=== PATIENT | male | born 1955 | race Caucasian/White ===

== ENCOUNTER 2021-04-29 08:43 | Emergency (ER) | payer MEDICARE, OTHER, SELFPAY ==
[2021-04-29 08:45] VITALS: BP 128/70; PULSE 92; RESP 14; TEMP 37.6; O2SAT 96; BMI 34.7
--- NOTE | 2021-04-29 09:12 | EDS_ITS ---
HPI History of Present Illness Chief Complaint: Chest Pain Informant: patient and EMS Narrative Narrative: 66-year-old male presents to the emergency department with COVID-19. Patient states that last Monday he had a slight sore throat. By he felt significant fatigue and had a slight cough. He notes 2 episodes of diarrhea. He has been taking Tylenol and Motrin. He notes pain in his head that comes on as a sharp stabbing sensation. It is better with Tylenol Motrin but then returns. He notes sweats. He notes an upset stomach that is worse when he eats and drinks. Patient states that pain makes him very nauseous. He does have a history of GERD as well as hypertension. He denies any shortness of breath. [facility] Medical History (Updated 04/29/21 @ 09:[address] Evaristo Correa DO) GERD (gastroesophageal reflux disease) HTN (hypertension) Inguinal hernia Home Medications antiarthritic combination no.2 900 mg tablet mg PO 07/13/20 [History Last Taken Unknown] lisinopril 20 mg tablet 20 mg PO DAILY 07/13/20 [History Last Taken Unknown] omeprazole 40 mg capsule,delayed release 40 mg PO BID 07/13/20 [History Last Taken Unknown] dexamethasone 6 mg PO DAILY #5 tab 04/29/21 [Rx Last Taken Unknown] hydrocodone-acetaminophen 1 tab PO Q6H PRN PRN 3 Days #12 tablet 04/29/21 [Rx Last Taken Unknown] Allergy/AdvReac Type Severity Reaction Status Date / Time No Known Allergies Allergy Unverified 04/29/21 08:45 Family History Mother Cancer ovarian Surgical History S/P right inguinal hernia repair Social History Smoking Status: Never smoker alcohol intake: current alcohol intake frequency: holidays/special occasions only ROS ROS ED ROS Narrative General fatigue Constitutional Constitutional ED: Reports fever(s) and sweats; Denies chills or weight loss Eyes Eyes: Denies change in vision or diplopia ENT ENT ED: Denies ear pain, rhinorrhea or sore throat Cardiovascular Cardiovascular: Denies chest pain, orthopnea, palpitations or racing heartbeat Respiratory/Chest Respiratory/Chest: Reports cough; Denies dyspnea or orthopnea Gastrointestinal Gastrointestinal: Reports abdominal pain, diarrhea and nausea; Denies vomiting Genitourinary Genitourinary ED: Denies dysuria, hematuria or urinary frequency Musculoskeletal Musculoskeletal: Reports myalgias; Denies arthralgias Integumentary Denies abscess or rash Neurologic Neurologic: Reports headache(s); Denies weakness Psychiatric Psychiatric: Denies anxiety, depression, suicidal ideation or suicidal thoughts Endocrine Endocrinology: Denies polydipsia, polyphagia or polyuria Allergic/Immunologic Allergic/Immunologic ED: Denies mouth swelling, tongue swelling or urticaria EXAM Physical Exam Const Vital Signs: 04/29/21 08:45 04/29/21 11:20 Temperature 99.6 F H Temperature Source Oral Pulse Rate 92 80 Respiratory Rate 14 20 H Respiratory Effort Normal Non-Labored Respiratory Pattern Normal Blood Pressure 128/70 H 131/78 H Blood Pressure Mean 89 95 Pulse Ox 96 92 Oxygen Delivery Method Room Air Positive well nourished, well developed and obese General Appearance ED: well developed Nutritional Appearance: obese HEENT Reports normocephalic, head/scalp atraumatic and moist mucous membranes Eyes PERRL and EOMs intact bilaterally Neck no lymphadenopathy, supple and no JVD Resp normal respiratory effort and clear to auscultation bilaterally Cardio regular rate, regular rhythm and no murmurs GI non-distended GI Narrative: Diffuse tenderness to palpation Auscultation: normoactive bowel sounds Palpation: soft Back/Spine no CVA tenderness and normal ROM Extremity normal to inspection General Extremety ED: Negative for edema General Extremity: Negative for edema Neuro oriented x3 and CN's II-XII intact bilaterally Sensorium / Orientation: alert Motor Exam: strength 5/5 throughout Psych mental status grossly normal Mood & Affect: Negative for depressed or tearful Skin no rashes or lesions noted and no wounds MDM MDM MDM Narrative Medical decision making narrative: Patient has a thrombocytopenia and a leukopenia. BUN of 31 with creatinine 1.66. Urinalysis negative. My interpretation of chest x-ray is multifocal infiltrates. CTA of the chest demonstrates no pulmonary embolism. Patient received Pepcid and a small amount of fluid I also gave Toradol and morphine. The patient most likely has a gastritis secondary to his Motrin use which according to his paperwork he has been taking a significant amount of in addition with Excedrin. Recommend he take Tylenol. Continue to take his omeprazole and I will write for him to have Decadron on I can write for some pain medicine for his sharp lancinating head pain. Lab Data Attestation: I reviewed the patient's lab results. Labs: Laboratory Results - last 24 hr 04/29/21 04/29/21 04/29/21 08:48 08:48 09:35 WBC 3.7 L RBC 5.43 Hgb 16.6 H Hct 49.1 MCV 90.4 MCH 30.6 MCHC 33.8 RDW Std Deviation 43.7 RDW Coeff of Marina 13.2 Plt Count 95 L MPV 11.5 Immature Gran % (Auto) 0.300 Neut % (Auto) 66.0 Lymph % (Auto) 25.3 Latimer % (Auto) 8.1 Eos % (Auto) 0.0 Baso % (Auto) 0.3 Absolute Neuts (auto) 2.5 Absolute Lymphs (auto) 0.94 Nucleated RBC % 0 Platelet Estimate MOD DEC Sodium 139 Potassium 4.0 Chloride 105 Carbon Dioxide 27.0 Anion Gap 7 BUN 31 H Creatinine 1.66 H Estim Creat Clear Calc 46.62 Est GFR (MDRD) Af Amer 54 L Est GFR (MDRD) Non-Af 44 L BUN/Creatinine Ratio 18.7 Glucose 120 H Calcium 8.6 Total Bilirubin 0.50 AST 95 H ALT 103 H Alkaline Phosphatase 69 Troponin I High Sens 15 Total Protein 7.6 Albumin 3.4 Globulin 4.2 Albumin/Globulin Ratio 0.8 L Lipase 81 Urine Color Yellow Urine Clarity Clear Urine pH 5.0 Ur Specific Mallie 1.020 Urine Protein 30 H Urine Glucose (UA) Normal Urine Ketones Negative Urine Occult Blood 10 H Urine Nitrite Negative Urine Bilirubin Negative Urine Urobilinogen Normal Ur Leukocyte Esterase Negative Urine RBC 0 SEEN Urine WBC 0-5 SEEN Ur Squamous Epith Cells 0 SEEN Urine Bacteria 0 SEEN WBC Casts 0-5 SEEN Urine Mucus 0 SEEN Radiography Diagnostic Testing: Clinical Impression(s) from Imaging Studies Chest X-Ray 04/29/21 09:15 IMPRESSION: Multifocal infiltrates with features commonly reported with COVID pneumonia. Electronically Signed: Rob Valles MD ([place]) at 10:09 EDT , Service support , Chest CTA 04/29/21 10:12 IMPRESSION: 1. No central or segmental pulmonary embolism. 2. Multifocal infiltrates with features commonly reported with COVID pneumonia. Electronically Signed: Rob Valles MD (Brooks) at 10:33 EDT , Service support , EKG Initial EKG: Attestation: I personally reviewed and interpreted this EKG as follows: Comments: Normal sinus rhythm with a ventricular rate of 89 bpm. Prior EKG tracings: available for review Prior: Unchanged Discharge Plan Triage Chief Complaint: Chest Pain ED Provider: Evaristo Correa Dx/Rx/DC Orders Clinical Impression: COVID-19, Gastritis Instructions: Coronavirus Disease 2019 (COVID-19): Caring for Yourself or Others, ED Gastritis (Adult) Prescriptions: New hydrocodone-acetaminophen [hydrocodone-acetaminophen] 1 TABLET tablet 1 tab PO Q6H PRN PRN (Reason: Pain) 3 Days Qty: 12 RF: 0 dexamethasone 6 MG tablet 6 mg PO DAILY Qty: 5 RF: 0 No Action lisinopril 20 mg tablet 20 mg PO DAILY RF: 0 omeprazole 40 mg capsule,delayed release(DR/EC) 40 mg PO BID RF: 0 glucosamine-chondroitin 900 mg tablet PO RF: 0 Primary Care Provider: Liu Maciel Referrals: Liu Maciel MD [Primary Care Provider] - As Needed Disposition Disposition: Home, Self Care
--- NOTE | 2021-04-29 09:15 | RAD_ITS ---
STUDY: X-RAY CHEST REASON FOR EXAM: Male, 66 years old. covid 19 TECHNIQUE: AP COMPARISON: None. FINDINGS: EKG leads project over the chest. Patchy reticular and groundglass opacities throughout the lungs. There is no demonstrated pleural abnormality. Normal size heart. Normal mediastinum and martha. Normal visualized pulmonary arteries. Normal visualized aortic arch and descending thoracic aorta. Normal visualized thoracic spine. Normal visualized ribs, clavicles, and shoulders. There is no demonstrated abnormality of the visualized soft tissue structures of the upper abdomen. RAD/Chest 1 View (Portable) IMPRESSION: Multifocal infiltrates with features commonly reported with COVID pneumonia. Electronically Signed: Rob Valles MD (Brooks) at 10:09 EDT , Service support ,
--- NOTE | 2021-04-29 09:15 | EKG12_ITS ---
Test Reason : Blood Pressure : / mmHG Vent. Rate : 085 BPM Atrial Rate : 085 BPM P-R Int : 128 ms QRS Dur : 088 ms QT Int : 340 ms P-R-T Axes : 045 016 027 degrees QTc Int : 404 ms Normal sinus rhythm Normal ECG When compared with ECG of 29-APR-2021 09:29, MANUAL COMPARISON REQUIRED, DATA IS UNCONFIRMED Confirmed by CHELY PAGE, REGULO ([id number]), brands editor LILA JOES ([id number]) on 05/03/2021 12:14:34 PM Referred By: MARKELL Confirmed By:NOA MO MD
[2021-04-29 09:28] LABS: Absolute Lymphocyte Count 0.94 X10^3/uL (0.83-4.51); Absolute Neutrophil Count 2.5 X10^3/uL (2.0-7.7); Basophil# 0.01 X10^3/uL; Basophil% 0.3 % (0-1); Hematocrit 49.1 % (40-54); Hemoglobin 16.6 g/dL (13.0-16.5); Lymphocyte # 0.94 X10^3/ul (0.83-4.51); Lymphocyte % 25.3 % (19-41); Mean Corp Hgb Conc 33.8 g/dL (32-36); Mean Corpuscular Hgb 30.6 pg (27.0-32.0); Mean Corpuscular Volume 90.4 fL (80-94); Mean Platelet Vol. 11.5 fl (6.2-12.0); Monocyte% 8.1 % (0-10); NRBC Flagged by Analyzer 0 % (0-5); Neutrophil # 2.46 X10^3/uL (2.7-7.7); POSITIVE COUNT YES; Platelet Count 95 K/mm3 (150-450); RBC Distribution Width CV 13.2 % (11.6-14.6); RBC Distribution Width SD 43.7 fl (35.1-43.9); Red Blood Count 5.43 M/mm3 (4.6-6.2); White Blood Count 3.7 K/mm3 (4.4-11.0)
[2021-04-29 09:29] LABS: Differential Indicated SCAN CRITERIA MET
[2021-04-29] MEDS: Ketorolac 30 MG/ML Syringe IV (09:35)
[2021-04-29] MEDS: Ondansetron 4 MG/2 ML Vial IV (09:35)
[2021-04-29] MEDS: Morphine 4 MG/ML Syringe IV (09:36)
[2021-04-29] MEDS: Famotidine 200 MG/20 ML MDV 20 MG in 0.9% Normal Saline (Pres. free 8 ML 300 MG IV (09:46)
[2021-04-29 09:47] LABS: Bacteria 0 SEEN /hpf (None Seen); Mucous, Urine 0 SEEN /hpf (<or=2+); Red Blood Cells-Urine 0 SEEN /hpf (0-5); Squamous Epithelial Cells - UA 0 SEEN /hpf (0-5)
[2021-04-29 09:53] LABS: ALB/GLOB Ratio 0.8 RATIO (0.9-2.4); AST(SGOT) 95 U/L (15-37); Alanine Aminotransfer ALT/SGPT 103 U/L (16-61); Albumin, Serum 3.4 g/dL (3.2-5.0); Alkaline Phosphatase 69 U/L (45-117); Anion Gap 7 (5-15); BUN 31 mg/dL (7-18); BUN/Creat Ratio 18.7 RATIO (10-20); Calcium,Total 8.6 mg/dL (8.5-10.1); Chloride 105 mmol/L (98-107); Creatinine, Serum 1.66 mg/dL (0.70-1.30); EST Glomerular Filtration Rate 44 mL/min (>60); Est Glom Filt Rate - Afr Amer 54 mL/min (>60); Estimated Creatinine Clearance 46.62 ml/min; Globulin 4.2 g/dL (2.2-4.2); Glucose 120 mg/dL (74-106); Lipase 81 U/L (73-393); Protein, Total 7.6 g/dL (6.4-8.2); Sodium Level 139 mmol/L (136-145); Troponin-I HS 15 pg/mL (3.0-78.0)
[2021-04-29 09:54] LABS: Color, Urine Yellow (Yellow); Glucose, Dipstick Normal (Normal); Ketone-Dipstick Negative (Negative); Leukocyte Esterase-Dipstick Negative /ul (Negative); Nitrite-Dipstick Negative (Negative); Occult Blood-Urine 10 /ul (Negative); Protein-Dipstick 30 mg/dl (Negative); Urine Bilirubin Dipstick Negative (Negative); Urine Clarity Clear (Clear); Urine Urobilinogen Normal (Normal)
[2021-04-29 10:00] LABS: White Blood Cells 0-5 SEEN /hpf (0-5); White Cell Cast 0-5 SEEN /lpf (None Seen)
[2021-04-29 10:01] LABS: Platelet Estimate MOD DEC (ADEQ)
--- NOTE | 2021-04-29 10:12 | CT_ITS ---
STUDY: CTA CHEST REASON FOR EXAM: Male, 66 years old. covid 19 pulmonary embolism RADIATION DOSAGE (If Supplied By Facility): CTDIvol = ( 16.21 ) mGy, DLP = ( 540.30 ) mGycm TECHNIQUE: The examination was performed with the intravenous administration of IV 100mL Isovue-370. Post-processing of the angiographic images was performed, with multiplanar reformation and 3D reconstruction. Individualized dose optimization techniques were used for this CT. COMPARISON: None. FINDINGS: Normal enhancement of the main pulmonary artery and right and left pulmonary arteries. Normal enhancement of the bilateral peripheral pulmonary arteries. There is no demonstrated pulmonary embolism. Normal thoracic aorta and visualized great vessels. There is no demonstrated aortic dissection. Normal heart and pericardium. There are calcifications of the coronary arteries. Normal mediastinum. Normal hilar regions. Normal visualized trachea and bronchi. The lungs are well expanded. Patchy groundglass and interstitial opacities and multiple pulmonary lobes. Normal pleura. Normal chest wall structures. There are degenerative changes of thoracic spine. There is diffuse fatty infiltration of the liver. CT/CTA Chest W/WO Contrast IMPRESSION: 1. No central or segmental pulmonary embolism. 2. Multifocal infiltrates with features commonly reported with COVID pneumonia. Electronically Signed: Rob Valles MD ([place]) at 10:33 EDT , Service support ,
[2021-04-29 10:59] VITALS: O2SAT 96
[2021-04-29 11:20] VITALS: BP 131/78; PULSE 80; RESP 20; O2SAT 92
[2021-04-29 12:23] VITALS: BP 119/74; PULSE 80; RESP 20; O2SAT 96
== END 2021-04-29 12:42 | disposition home or self-care (01) ==
PROVIDERS: Emergency Provider Emergency Medicine; PCP Family Medicine
DX: U07.1 COVID-19 (principal); K29.70 Gastritis, unspecified, without bleeding; E66.9 Obesity, unspecified; K21.9 Gastro-esophageal reflux disease without esophagitis; I10 Essential (primary) hypertension; Z79.899 Other long term (current) drug therapy
CPT/HCPCS: 71045; 71275; 80053; 81001; 83690; 84484; 85025; 93005; 96365; 96366; 96375; 99285; Q9967; A4216; J2405; J3490

== ENCOUNTER 2021-05-02 10:07 | Inpatient (IN) | payer MEDICARE, OTHER, SELFPAY ==
[2021-05-02] VITALS (9 sets, daily range): BP systolic 104–157; BP diastolic 56–96; PULSE 71–112; RESP 18–31; TEMP 36.3–37.7; O2SAT 85–96; BMI 38.6
--- NOTE | 2021-05-02 10:25 | EKG12_ITS ---
Test Reason : CP Blood Pressure : / mmHG Vent. Rate : 089 BPM Atrial Rate : 089 BPM P-R Int : 128 ms QRS Dur : 090 ms QT Int : 328 ms P-R-T Axes : 047 027 030 degrees QTc Int : 399 ms Normal sinus rhythm Normal ECG Confirmed by CHELY PAGE, REGULO ([id number]), editor continuity and script LILA JOSE ([id number]) on 05/03/2021 12:14:20 PM Referred By: Confirmed By:NOA MO MD
--- NOTE | 2021-05-02 10:25 | RAD_ITS ---
STUDY: X-RAY CHEST REASON FOR EXAM: Male, 66 years old. cough TECHNIQUE: Single AP portable view of the chest. COMPARISON: CTA chest 04/29/2021, x-ray chest 04/29/2021 FINDINGS: Cardiac monitoring leads are present. Once again there are patchy alveolar opacities seen throughout both lungs consistent with infiltrate, viral pneumonitis such as Covid 19. Since prior study there there is greater consolidation in the inferior aspect of the right upper lobe and greater consolidation in the left lower lobe laterally as well as the perihilar region with overall lower lung volumes. There is no demonstrated pleural abnormality. Normal size heart. Normal mediastinum and martha. Normal visualized pulmonary arteries. Normal visualized aortic arch and descending thoracic aorta. Normal visualized thoracic spine. Normal visualized ribs, clavicles, and shoulders. There is no demonstrated abnormality of the visualized soft tissue structures of the upper abdomen. RAD/Chest 1 View (Portable) IMPRESSION: Once again there are patchy alveolar opacities seen throughout both lungs consistent with infiltrate, viral pneumonitis such as Covid 19. Since prior study there there is greater consolidation in the inferior aspect of the right upper lobe and greater consolidation in the left lower lobe laterally as well as the perihilar region with overall lower lung volumes Electronically Signed: Esther Moreno MD at 11:20 EDT , Service support ,
--- NOTE | 2021-05-02 10:32 | ED.VIS.CHEST ---
HPI History of Present Illness Chief Complaint: Shortness of Breath Narrative Narrative: 56-year-old male presenting with dyspnea and found to have a pulse ox of 85% on room air. His O2 sats improved with 4.5 L of oxygen. Patient is stating that he has some epigastric pain. He feels like he has to belch. Mild nausea is associated. Patient symptoms of COVID-19 started 12 days ago. He was seen on the and was able to be discharged home. He states that he is not been taking his medication as he supposed to but is not eating and drinking as much as he has been. He does not require oxygen usually at home. He denies any cardiac history. Patient states he had a chest CT the other day which was abnormal but cannot tell me what was on it. Patient no longer having fevers but does complain of body aches and chills. PFSH PFSH Medical History GERD (gastroesophageal reflux disease) HTN (hypertension) Inguinal hernia Home Medications antiarthritic combination no.2 900 mg tablet 900 mg PO DAILY 07/13/20 [History Last Taken Unknown] lisinopril 20 mg tablet 20 mg PO DAILY 07/13/20 [History Last Taken Unknown] omeprazole 40 mg capsule,delayed release 40 mg PO BID 07/13/20 [History Last Taken Unknown] dexamethasone 6 mg PO DAILY #5 tab 04/29/21 [Rx Last Taken Unknown] hydrocodone-acetaminophen 1 tab PO Q6H PRN PRN 3 Days #12 tablet 04/29/21 [Rx Last Taken Unknown] Allergy/AdvReac Type Severity Reaction Status Date / Time No Known Allergies Allergy Unverified 04/29/21 08:45 Family History Mother Cancer ovarian Surgical History S/P right inguinal hernia repair Social History Smoking Status: Never smoker alcohol intake: current alcohol intake frequency: holidays/special occasions only ROS ROS ED Constitutional Constitutional ED: Reports chills and fever(s) Eyes Eyes: Denies blurry vision or change in vision ENT ENT ED: Denies rhinorrhea or sore throat Cardiovascular Cardiovascular: Reports chest pain; Denies palpitations Respiratory/Chest Respiratory/Chest: Reports cough, dyspnea and dyspnea on exertion Gastrointestinal Gastrointestinal: Reports abdominal pain and nausea; Denies constipation, diarrhea or vomiting Genitourinary Genitourinary ED: Denies dysuria or hematuria Musculoskeletal Musculoskeletal: Reports myalgias; Denies arthralgias or neck pain Integumentary Denies Abrasions or rash Neurologic Neurologic: Reports headache(s); Denies paresthesias or weakness EXAM Physical Exam Const Vital Signs: 05/02/21 10:09 05/02/21 10:53 05/02/21 11:13 Temperature 98.4 F 97.3 F L Temperature Source Oral Temporal Pulse Rate 112 H 84 84 Respiratory Rate 20 H 27 H 27 H Respiratory Effort Short of Breath Labored Accessory Muscle Use Respiratory Depth Shallow Respiratory Pattern Tachypnea Blood Pressure 157/96 H 112/73 121/77 H Blood Pressure Mean 116 86 91 Pulse Ox 85 96 94 Oxygen Delivery Method Nasal Cannula Nasal Cannula Oxygen Flow Rate (L/min) 6 5 6 Fraction of Inspired Oxygen (FIO2) 94 Positive obese General Appearance ED: NAD; Negative for pallor Nutritional Appearance: obese HEENT Reports dry mucous membranes normocephalic and atraumatic Mouth ED: Yes dry mucous membranes Mouth: dry mucous membranes Eyes PERRL and EOMs intact bilaterally General Eye ED: Negative for pale conjunctiva or scleral icterus Neck No no lymphadenopathy and No supple Chest Wall inspection of chest normal and palpation of chest normal Resp normal respiratory effort and clear to auscultation bilaterally Cardio regular rhythm Rate: tachycardic GI GI Narrative: Mild epigastric tenderness. Extremity normal to inspection General Extremety ED: Negative for edema or tenderness General Extremity: Negative for edema Neuro CN's II-XII intact bilaterally and no sensory deficits noted Sensorium / Orientation: awake and alert Motor Exam: strength 5/5 throughout Psych mental status grossly normal Skin General Skin Exam: Negative for jaundice or pallor MDM MDM MDM Narrative Medical decision making narrative: Patient with COVID-19 on day 12 presenting with failure to thrive and hypoxia. CBC does show that he is lymphopenic. He does not have an elevated white blood cell count nor is he leukopenic. Creatinine is actually improved to 1.27. Electrolytes are normal. AST and ALT are slightly elevated. Bilirubin normal. Procalcitonin negative. Troponin negative. EKG on my interpretation shows a normal sinus rhythm with a ventricular rate of 85 bpm without sign of ischemic change. Chest x-ray my participation shows bilateral pulmonary infiltrates which have worsened since previous chest x-ray. Radiologist does agree. I do not believe this is likely due to Covid. Patient recently had CTA of the chest which was negative for PEs. Patient was given dexamethasone 6 mg IV as well as omeprazole. At this point since the patient is unable to care for himself at home and is requiring oxygen above the level I could send him home with I will admit him to the hospital. He was discussed with the hospitalist and is admitted in stabilized condition. Impression: 1. COVID-19 pneumonitis 2. Hypoxic respiratory failure Lab Data Attestation: I reviewed the patient's lab results. Labs: Laboratory Results - last 24 hr 05/02/21 05/02/21 05/02/21 09:32 09:32 09:32 WBC 8.3 RBC 5.44 Hgb 16.4 Hct 49.1 MCV 90.3 MCH 30.1 MCHC 33.4 RDW Std Deviation 42.6 RDW Coeff of Marina 12.9 Plt Count 174 MPV 10.5 Immature Gran % (Auto) 0.700 Neut % (Auto) 81.6 H Lymph % (Auto) 8.2 L Gosper % (Auto) 9.4 Eos % (Auto) 0.0 Baso % (Auto) 0.1 Absolute Neuts (auto) 6.8 Absolute Lymphs (auto) 0.68 L Nucleated RBC % 0 Sodium 139 Potassium 4.1 Chloride 102 Carbon Dioxide 28.0 Anion Gap 9 BUN 36 H Creatinine 1.27 Estim Creat Clear Calc 53.49 Est GFR (MDRD) Af Amer 73 Est GFR (MDRD) Non-Af 60 BUN/Creatinine Ratio 28.3 H Glucose 117 H Calcium 9.0 Total Bilirubin 0.60 AST 95 H ALT 139 H Alkaline Phosphatase 80 Troponin I High Sens 9 Total Protein 7.7 Albumin 3.3 Globulin 4.4 H Albumin/Globulin Ratio 0.8 L Lipase Procalcitonin 0.06 05/02/21 09:32 WBC RBC Hgb Hct MCV MCH MCHC RDW Std Deviation RDW Coeff of Marina Plt Count MPV Immature Gran % (Auto) Neut % (Auto) Lymph % (Auto) Gos[place] % (Auto) Eos % (Auto) Baso % (Auto) Absolute Neuts (auto) Absolute Lymphs (auto) Nucleated RBC % Sodium Potassium Chloride Carbon Dioxide Anion Gap BUN Creatinine Estim Creat Clear Calc Est GFR (MDRD) Af Amer Est GFR (MDRD) Non-Af BUN/Creatinine Ratio Glucose Calcium Total Bilirubin AST ALT Alkaline Phosphatase Troponin I High Sens Total Protein Albumin Globulin Albumin/Globulin Ratio Lipase 54 L Procalcitonin Radiography Diagnostic Testing: Clinical Impression(s) from Imaging Studies Chest X-Ray 05/02/21 10:25 IMPRESSION: Once again there are patchy alveolar opacities seen throughout both lungs consistent with infiltrate, viral pneumonitis such as Covid 19. Since prior study there there is greater consolidation in the inferior aspect of the right upper lobe and greater consolidation in the left lower lobe laterally as well as the perihilar region with overall lower lung volumes Electronically Signed: Esther Moreno MD at 11:20 EDT , Service support , Discharge Plan Triage Chief Complaint: Shortness of Breath ED Provider: Ruben Correa Dx/Rx/DC Orders Prescriptions: No Action lisinopril 20 mg tablet 20 mg PO DAILY RF: 0 omeprazole 40 mg capsule,delayed release(DR/EC) 40 mg PO BID RF: 0 glucosamine-chondroitin 900 mg tablet 900 mg PO DAILY RF: 0 hydrocodone-acetaminophen [hydrocodone-acetaminophen] 1 TABLET tablet 1 tab PO Q6H PRN PRN (Reason: Pain) 3 Days Qty: 12 RF: 0 dexamethasone 6 MG tablet 6 mg PO DAILY Qty: 5 RF: 0 Primary Care Provider: Liu Maciel
[2021-05-02 10:35] LABS: Absolute Lymphocyte Count 0.68 X10^3/uL (0.83-4.51); Absolute Neutrophil Count 6.8 X10^3/uL (2.0-7.7); Basophil# 0.01 X10^3/uL; Basophil% 0.1 % (0-1); Hematocrit 49.1 % (40-54); Hemoglobin 16.4 g/dL (13.0-16.5); Lymphocyte # 0.68 X10^3/ul (0.83-4.51); Lymphocyte % 8.2 % (19-41); Mean Corp Hgb Conc 33.4 g/dL (32-36); Mean Corpuscular Hgb 30.1 pg (27.0-32.0); Mean Corpuscular Volume 90.3 fL (80-94); Mean Platelet Vol. 10.5 fl (6.2-12.0); Monocyte# 0.78 X10^3/uL; Monocyte% 9.4 % (0-10); NRBC Flagged by Analyzer 0 % (0-5); Neutrophil # 6.75 X10^3/uL (2.7-7.7); Neutrophil % 81.6 % (47-70); Platelet Count 174 K/mm3 (150-450); RBC Distribution Width CV 12.9 % (11.6-14.6); RBC Distribution Width SD 42.6 fl (35.1-43.9); Red Blood Count 5.44 M/mm3 (4.6-6.2); White Blood Count 8.3 K/mm3 (4.4-11.0)
[2021-05-02 10:54] LABS: Procalcitonin 0.06 ng/mL (0.00-0.09)
[2021-05-02 10:55] LABS: ALB/GLOB Ratio 0.8 RATIO (0.9-2.4); AST(SGOT) 95 U/L (15-37); Alanine Aminotransfer ALT/SGPT 139 U/L (16-61); Albumin, Serum 3.3 g/dL (3.2-5.0); Alkaline Phosphatase 80 U/L (45-117); Anion Gap 9 (5-15); BUN 36 mg/dL (7-18); BUN/Creat Ratio 28.3 RATIO (10-20); Chloride 102 mmol/L (98-107); Creatinine, Serum 1.27 mg/dL (0.70-1.30); EST Glomerular Filtration Rate 60 mL/min (>60); Est Glom Filt Rate - Afr Amer 73 mL/min (>60); Estimated Creatinine Clearance 53.49 ml/min; Globulin 4.4 g/dL (2.2-4.2); Glucose 117 mg/dL (74-106); Potassium 4.1 mmol/L (3.5-5.1); Protein, Total 7.7 g/dL (6.4-8.2); Sodium Level 139 mmol/L (136-145); Troponin-I HS 9 pg/mL (3.0-78.0)
[2021-05-02] MEDS: dexAMETHasone 10 MG/ML Vial 6 MG IV (11:05)
[2021-05-02] MEDS: Metoclopramide 10 MG/2 ML Vial IV (11:05)
[2021-05-02] MEDS: DiphenhydrAMINE 50 MG/ML Syringe 25 MG IV (11:05)
[2021-05-02 11:21] LABS: Lipase 54 U/L (73-393)
--- NOTE | 2021-05-02 12:05 | HP.PCM.HOS_ITS ---
HPI - General General Date of Admission: 05/02/21 HPI Narrative HOA WHITAKER, is a 66 M as symptoms of Covid for last 12 days. He does started with generalized weakness, loss of appetite, vomiting and diarrhea also few days ago. And other nonspecific symptoms including headache, myalgia has been taking Tylenol and Motrin as needed at home. He was found hypoxic and required 4.5 L oxygen in ED and currently on 6 L oxygen. Patient has cough with yellowish sputum production. Patient also has history of chronic GERD, epigastric pain and had EGD several years ago and is not sure about the finding but probably ulcer. Patient on PPI at home. Patient's is also sick with Covid (less serious. Patient was seen in the ER on the , discharged home on Decadron. At that time CTA chest did not demonstrate pulmonary embolism. At that time, he did not require oxygen. Chest x-ray done shows worsening of the alveolar opacities and infiltrates. It is diffuse but predominantly in the right upper lobe and left lower lobe and perihilar areas. Twelve-lead EKG shows normal sinus rhythm at 83 bpm. QTc 404 ms. No significant change from the previous EKG. [facility] Medical History GERD (gastroesophageal reflux disease) HTN (hypertension) Inguinal hernia Home Medications antiarthritic combination no.2 900 mg tablet 900 mg PO DAILY 07/13/20 [History Last Taken Unknown] lisinopril 20 mg tablet 20 mg PO DAILY 07/13/20 [History Last Taken Unknown] omeprazole 40 mg capsule,delayed release 40 mg PO BID 07/13/20 [History Last Taken Unknown] dexamethasone 6 mg PO DAILY #5 tab 04/29/21 [Rx Last Taken Unknown] hydrocodone-acetaminophen 1 tab PO Q6H PRN PRN 3 Days #12 tablet 04/29/21 [Rx Last Taken Unknown] Allergy/AdvReac Type Severity Reaction Status Date / Time No Known Allergies Allergy Unverified 04/29/21 08:45 Family History Mother Cancer ovarian Surgical History S/P right inguinal hernia repair Social History Smoking Status: Never smoker alcohol intake: current alcohol intake frequency: holidays/special occasions only ROS ROS Narrative Constitutional: Reports fatigue and weakness. Generalized aches and pain, chills but denies any fever HEENT: Reports systems reviewed and no addt'l complaints, except as documented Respiratory/Chest: As mentioned in HPI. Denies a smoking history. Gastrointestinal: Sometimes vomiting and diarrhea. Epigastric abdominal pain. Heartburn Genitourinary: Denies burning urination or new urinary tract symptoms Musculoskeletal: Reports joint pain and limited range of motion Neurologic: Denies seizure-like activity skin: No ulcer. No rash Endocrinology: Reports systems reviewed and no addt'l complaints, except as documented Hematologic/Lymphatic: Reports systems reviewed and no addt'l complaints, except as documented Rest 12 ROS are negative except as mentioned in HPI Vital Signs Vital Signs Vital Signs: 05/02/21 10:09 05/02/21 10:53 05/02/21 11:13 Temperature 98.4 F 97.3 F L Temperature Source Oral Temporal Pulse Rate 112 H 84 84 Respiratory Rate 20 H 27 H 27 H Respiratory Effort Short of Breath Labored Accessory Muscle Use Respiratory Depth Shallow Respiratory Pattern Tachypnea Blood Pressure 157/96 H 112/73 121/77 H Blood Pressure Mean 116 86 91 Pulse Ox 85 96 94 Oxygen Delivery Method Nasal Cannula Nasal Cannula Oxygen Flow Rate (L/min) 6 5 6 Fraction of Inspired Oxygen (FIO2) 94 Weight Weight: 246 lb 7.629 oz Body Mass Index (BMI) 38.6 Physical Exam Narrative General: Alert, Oriented x3, Cooperative, looks sick HEENT: Atraumatic, PERRLA, EOMI, Normocephalic Oral: No Gingival or Mucosal Lesions/ Ulcerations Neck: Supple, No JVD, Negative Carotid Bruits Lungs: Air entry diminished in bilateral lung bases. Fine lung crepitations. Dyspnea at rest. Cardiovascular: Regular rate, Regular Rhythm, Normal S1, Normal S2, No murmurs Abdomen: Mild tenderness in epigastric region. Bowel Sounds Present, Soft, Non- Distended : No renal angle tenderness. No suprapubic tenderness. Extremities: No edema, Capillary Refill Less than 3 Seconds Skin: No rashes, No breakdown Musculoskeletal: No Tenderness to Palpation of Joints or Extremities Neurological: Cranial nerves II-XII grossly intact, DTR 2+/4 and Symmetrical, Neuro grossly intact Psych/Mental Status: Flat affect. Results Lab / Micro Data Result Diagrams: 05/02/21 09:32 05/02/21 09:32 Labs: Laboratory Results - last 24 hr 05/02/21 09:32: WBC 8.3, RBC 5.44, Hgb 16.4, Hct 49.1, MCV 90.3, MCH 30.1, MCHC 33.4, RDW Std Deviation 42.6, RDW Coeff of Marina 12.9, Plt Count 174, MPV 10.5, Immature Gran % (Auto) 0.700, Neut % (Auto) 81.6 H, Lymph % (Auto) 8.2 L, Coleman % (Auto) 9.4, Eos % (Auto) 0.0, Baso % (Auto) 0.1, Absolute Neuts (auto) 6.8, Absolute Lymphs (auto) 0.68 L, Nucleated RBC % 0 05/02/21 09:32: Sodium 139, Potassium 4.1, Chloride 102, Carbon Dioxide 28.0, Anion Gap 9, BUN 36 H, Creatinine 1.27, Estim Creat Clear Calc 53.49, Est GFR (MDRD) Af Amer 73, Est GFR (MDRD) Non-Af 60, BUN/Creatinine Ratio 28.3 H, Glucose 117 H, Calcium 9.0, Total Bilirubin 0.60, AST 95 H, ALT 139 H, Alkaline Phosphatase 80, Troponin I High Sens 9, Total Protein 7.7, Albumin 3.3, Globulin 4.4 H, Albumin/Globulin Ratio 0.8 L 05/02/21 09:32: Procalcitonin 0.06 05/02/21 09:32: Lipase 54 L Radiology Impression Chest X-Ray 05/02/21 10:25 IMPRESSION: Once again there are patchy alveolar opacities seen throughout both lungs consistent with infiltrate, viral pneumonitis such as Covid 19. Since prior study there there is greater consolidation in the inferior aspect of the right upper lobe and greater consolidation in the left lower lobe laterally as well as the perihilar region with overall lower lung volumes Electronically Signed: Esther Moreno MD at 11:20 EDT , Service support , Assessment & Plan Assessment/Plan (1) COVID-19: PLAN: 1. Acute hypoxic respiratory failure secondary to bilateral COVID- 19 pneumonia: Patient is being admitted on MedSurg floor. Continue Decadron. Patient is out of window for remdesivir. Oxygen therapy to keep pulse ox more than 92%. Monitor CBC and CMP daily. Inflammatory markers ordered. Pneumonia including urinary antigens, blood culture and sputum culture ordered. If patient oxygenation worsens, might need baricitinib. 2. GERD, PUD: Protonix 40 mg IV given in ED. On Protonix 40 mg oral twice daily. 3. Hypertension: Currently normotensive. Lisinopril continued with holding parameters. 4. Other comorbidities include bilateral knee joint arthritis: Home medications reconciliation done Advanced directive: Living will/advanced directive/end of life care: Patient does not have living will or advanced directive or power of insurance attorney for health. His is next of kin. After discussion of benefits/risks procedures involved with full code, DNR CC arrest and DNR CC, the patient opted for full code and intubation/ventilator as last resort Patient does want artificial life support including intubation, tube feed, ventilator and/chest compression, central venous catheter, vasopressor and DC shock if needed Total time spent in [id number] encounter in discussion of advanced directive 16 minutes. Charges/Coding Visit Charges Inpatient E&M: 97493 Init Hosp L3 Procedures Hospitalists Procedures: 04580 Advncd Care Plan 30 Min
--- NOTE | 2021-05-02 12:06 | NURSING ---
DR CAMACHO FOR DR GUILLAUME
--- NOTE | 2021-05-02 12:10 | NURSING ---
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
[2021-05-02 13:06] LABS: Phosphorus 2.9 mg/dL (2.5-4.9)
[2021-05-02 13:29] LABS: CPK Total, Creatine Kinase 54 U/L (39-308); LDH 383 U/L (87-241)
[2021-05-02 13:30] LABS: Fibrinogen 548 mg/dl (203-444)
[2021-05-02 13:36] LABS: Lactic Acid 2.1 mmol/L (0.4-1.9)
[2021-05-02] MEDS: Enoxaparin 30 MG/0.3 ML Syringe SC ×2 (14:11→21:40)
[2021-05-02] MEDS: Lactated Ringers 1,000 ML 100 ML IV ×2 (15:18→19:52)
[2021-05-02 17:07] LABS: Reflex Lactate? Y
[2021-05-02] MEDS: Lactated Ringers 500 ML 999 ML IV (19:44)
[2021-05-02] MEDS: Pantoprazole Sodium 40 MG Tablet PO (21:38)
[2021-05-02] MEDS: guaiFENesin/D-Methorphan TAB.SR.12H 1 TABLET PO (21:38)
[2021-05-03] VITALS (8 sets, daily range): BP systolic 119–135; BP diastolic 61–77; PULSE 61–70; RESP 20; TEMP 36.2–36.7; O2SAT 79–97
--- NOTE | 2021-05-03 00:44 | PCS.PANDOC ---
PANDEMIC DOCUMENTATION INITIATED: Date: 03/08/2021 Time: 190 Emergency documentation initiated 05/02/21 @ 1900
[2021-05-03 05:45] LABS: Absolute Lymphocyte Count 0.59 X10^3/uL (0.83-4.51); Absolute Neutrophil Count 5.5 X10^3/uL (2.0-7.7); Hematocrit 42.8 % (40-54); Hemoglobin 14.3 g/dL (13.0-16.5); Lymphocyte # 0.59 X10^3/ul (0.83-4.51); Lymphocyte % 8.7 % (19-41); Mean Corp Hgb Conc 33.4 g/dL (32-36); Mean Corpuscular Hgb 30.4 pg (27.0-32.0); Mean Corpuscular Volume 91.1 fL (80-94); Mean Platelet Vol. 10.4 fl (6.2-12.0); Monocyte# 0.64 X10^3/uL; Monocyte% 9.4 % (0-10); NRBC Flagged by Analyzer 0 % (0-5); POSITIVE DIFFERENTIAL YES; Platelet Count 145 K/mm3 (150-450); RBC Distribution Width CV 12.6 % (11.6-14.6); RBC Distribution Width SD 42.5 fl (35.1-43.9); White Blood Count 6.8 K/mm3 (4.4-11.0)
[2021-05-03] MEDS: Lactated Ringers 1,000 ML 100 ML IV (06:12)
[2021-05-03 06:13] LABS: ALB/GLOB Ratio 0.7 RATIO (0.9-2.4); AST(SGOT) 56 U/L (15-37); Alanine Aminotransfer ALT/SGPT 104 U/L (16-61); Albumin, Serum 2.5 g/dL (3.2-5.0); Alkaline Phosphatase 62 U/L (45-117); Anion Gap 5 (5-15); BUN 31 mg/dL (7-18); Calcium,Total 8.4 mg/dL (8.5-10.1); Chloride 106 mmol/L (98-107); Creatinine, Serum 1.15 mg/dL (0.70-1.30); EST Glomerular Filtration Rate 68 mL/min (>60); Est Glom Filt Rate - Afr Amer 82 mL/min (>60); Estimated Creatinine Clearance 59.07 ml/min; Globulin 3.7 g/dL (2.2-4.2); Glucose 122 mg/dL (74-106); Lactic Acid 1.3 mmol/L (0.4-1.9); Magnesium 2.2 mg/dL (1.6-2.6); Potassium 4.5 mmol/L (3.5-5.1); Protein, Total 6.2 g/dL (6.4-8.2); Sodium Level 139 mmol/L (136-145)
[2021-05-03 06:17] LABS: Differential Indicated SCAN CRITERIA MET
--- NOTE | 2021-05-03 06:35 | NURSING ---
COSMETOLOGIST APPRENTICE in to assist pt. Pt stood at bedside to use urinal c/o SOB and dizziness, SpO2 in mid 70's on 5L, did not improve at rest. requiring 9L O2 to maintain 90-92%.
[2021-05-03] MEDS: guaiFENesin/D-Methorphan TAB.SR.12H 1 TABLET PO ×2 (09:57→21:43)
[2021-05-03] MEDS: dexAMETHasone 2 MG TABLET 6 MG PO (09:57)
[2021-05-03] MEDS: Lisinopril 20 MG Tablet PO (09:57)
[2021-05-03] MEDS: Pantoprazole Sodium 40 MG Tablet PO ×2 (09:57→21:43)
[2021-05-03] MEDS: Enoxaparin 30 MG/0.3 ML Syringe SC ×2 (09:58→21:43)
--- NOTE | 2021-05-03 12:50 | CASEMGMT ---
Addendum entered by Brenda Cortés 05/03/21 13:44: Pt denies use of alcohol, cigarettes, street drug or illegal drug use. Original Note: BRENDA CROWDER Assessment: Face to Face with pt for initial transition planning/care coordination assessment. BRENDA CROWDER introduced self and role at [facility], pt voices understanding and consents to assessment. Pt is A/O x4 and answers all questions appropriately at this time. Pt sitting up in bed with O2 on in no distress. Care providers, pharmacy, and demographics verified/updated. Admitting Dx: COVID 19 PNA PCP: Janell Specialists:Pt denies having any specialists. Preferred Pharmacy: [facility] Insurance: MCR, MMO Prescription Benefit: yes LW/HPOA: Pt denies having a LW/DPOA and denies need for info regarding AD. LNOK: Key Searss, ; Shamar Masters, son Living Arrangements: Pt lives with and son in a two story house with 1 step to enter in the back. Pt reports he is I in ADL's and denies concerns at home. Transportation: Pt drives self and denies concerns with transportation. DME/HHC/SNF: Pt has a walker that he occas uses when his ankles tighten up. Pt denies hx of HHC or SNF stays. Pt states he was first tested for COVID at [facility]. He states his is also positive but does not belive his son is. Pt states he is able to quarantine from his son by using separate bedrooms and bathrooms. Pt is unsure who can provide him with groceries and supplies while in quarantine. Discussed options of [employer], [employer] and online ordering. 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 Pt is concerned that his has covid and is trying to manage the farm right now on her own. Discussed local in network DME providers should pt need O2 upon dc, pt chose [employer]. Pt states no concerns with going home at time of dc. Pt states no further concerns/needs. CM to follow. Advised pt to ask CM if any further question/concerns/needs arise, voices understanding. Pt Goal: Home Plan: Home
--- NOTE | 2021-05-03 15:54 | PCM.PN.HOSP ---
Subjective Subjective Patient hypoxia worsened and currently on high flow 12 L of oxygen. Might need air Vo or BiPAP if further worsening of hypoxia or ventilation. Objective Data Objective Data Vital Signs: Vital Signs Temp Pulse Resp BP Pulse Ox 97.2 F L 66 20 H 135/65 H 93 05/03/21 08:43 05/03/21 08:43 05/03/21 08:43 05/03/21 08:43 05/03/21 12:00 Oxygen Flow Rate (L/min) 12 Oxygen Delivery Method Nasal Cannula Weight: 246 lb 7.629 oz Body Mass Index (BMI) 38.6 Intake & Output: Intake and Output for Last 24 Hours 05/01/21 05/02/21 05/03/21 23:59 23:59 23:59 Intake Total 1866.67 / 2166.67 1540 / 1540 Output Total 700 / 700 Balance 1866.67 / 1466.67 840 / 840 Lab / Micro Data Result Diagrams: 05/03/21 05:30 05/03/21 05:30 Labs: Laboratory Results - last 24 hr 05/02/21 17:34: Lactic Acid 2.0 05/03/21 05:30: Sodium 139, Potassium 4.5, Chloride 106, Carbon Dioxide 28.0, Anion Gap 5, BUN 31 H, Creatinine 1.15, Estim Creat Clear Calc 59.07, Est GFR (MDRD) Af Amer 82, Est GFR (MDRD) Non-Af 68, BUN/Creatinine Ratio 27.0 H, Glucose 122 H, Calcium 8.4 L, Magnesium 2.2, Total Bilirubin 0.50, AST 56 H, ALT 104 H, Alkaline Phosphatase 62, Total Protein 6.2 L, Albumin 2.5 L, Globulin 3.7, Albumin/Globulin Ratio 0.7 L 05/03/21 05:30: WBC 6.8, RBC 4.70, Hgb 14.3, Hct 42.8, MCV 91.1, MCH 30.4, MCHC 33.4, RDW Std Deviation 42.5, RDW Coeff of Marina 12.6, Plt Count 145 L, MPV 10.4, Immature Gran % (Auto) 0.900, Neut % (Auto) 81.0 H, Lymph % (Auto) 8.7 L, [place] % (Auto) 9.4, Eos % (Auto) 0.0, Baso % (Auto) 0.0, Absolute Neuts (auto) 5.5, Absolute Lymphs (auto) 0.59 L, Nucleated RBC % 0 05/03/21 05:30: Lactic Acid 1.3 Micro: Microbiology 05/02/21 12:34 Blood Culture (Wb) - Anticubital Left Bacteria Detection (PCR) - Final Staphylococcus epidermidis 05/02/21 12:34 Blood Culture (Wb) - Anticubital Left Blood Culture - Preliminary Staphylococcus epidermidis 05/02/21 23:20 Sputum, Expectorated/Coughed Gram Stain - Final 05/02/21 21:30 Urine, Clean Catch Legionella Antigen - Final 05/02/21 21:30 Urine, Clean Catch Streptococcus pneumoniae Antigen (M - Final Physical Exam Narrative General: Alert, Oriented x3, Cooperative, looks sick HEENT: Atraumatic, PERRLA, EOMI, Normocephalic Oral: No Gingival or Mucosal Lesions/ Ulcerations Neck: Supple, No JVD, Negative Carotid Bruits Lungs: Air entry severely diminished in bilateral lung bases. Bilateral fine lung crepitations. Dyspnea at rest. Cardiovascular: Regular rate, Regular Rhythm, Normal S1, Normal S2, No murmurs Abdomen: Mild tenderness in epigastric region. Bowel Sounds Present, Soft, Non-Distended : No renal angle tenderness. No suprapubic tenderness. Extremities: No edema, Capillary Refill Less than 3 Seconds Skin: No rashes, No breakdown Musculoskeletal: No Tenderness to Palpation of Joints or Extremities Neurological: Cranial nerves II-XII grossly intact, DTR 2+/4 and Symmetrical, Neuro grossly intact Psych/Mental Status: Flat affect. Assessment & Plan Assessment/Plan (1) COVID-19: PLAN: 1. Acute hypoxic respiratory failure secondary to bilateral COVID-19 pneumonia: Patient is being admitted on MedSur floor. Continue Decadron. Patient is out of window for remdesivir. Oxygen therapy to keep pulse ox more than 92%. Pneumonia including urinary antigens, blood culture and sputum culture ordered. If patient oxygenation worsens, might need baricitinib. 05/03: D-dimer normal. Inflammatory markers fibrinogen, LDH are elevated. Serum transaminases are elevated suggestive of acute viral hepatitis from COVID-19. Monitor CBC and CMP daily. Blood culture positive for staph epidermidis probably skin contamination. Sputum culture shows 2+ gram-positive cocci, 2+ gram-positive rods. Urinary antigens are negative. Discontinue IV fluid. 2. GERD, PUD: Protonix 40 mg IV given in ED. On Protonix 40 mg oral twice daily. 3. Hypertension: Currently normotensive. Lisinopril continued with holding parameters. 4. Other comorbidities include bilateral knee joint arthritis: Home medications reconciliation done Advanced directive: Living will/advanced directive/end of life care: Patient does not have living will or advanced directive or power of workers compensation attorney for health. His is next of kin. After discussion of benefits/risks procedures involved with full code, DNR CC arrest and DNR CC, the patient opted for full code and intubation/ventilator as last resort Patient does want artificial life support including intubation, tube feed, ventilator and/chest compression, central venous catheter, vasopressor and DC shock if needed Total time spent in [id number] encounter in discussion of advanced directive 16 minutes. Charges/Coding Visit Charges Inpatient E&M: 12404 Subs Hosp L2
[2021-05-04] VITALS (26 sets, daily range): BP systolic 92–131; BP diastolic 46–72; PULSE 59–76; RESP 14–32; TEMP 36–37.1; O2SAT 84–100
[2021-05-04 07:01] LABS: ALB/GLOB Ratio 0.7 RATIO (0.9-2.4); AST(SGOT) 45 U/L (15-37); Alanine Aminotransfer ALT/SGPT 88 U/L (16-61); Albumin, Serum 2.6 g/dL (3.2-5.0); Alkaline Phosphatase 61 U/L (45-117); Anion Gap 7 (5-15); BUN 32 mg/dL (7-18); BUN/Creat Ratio 28.6 RATIO (10-20); Calcium,Total 8.7 mg/dL (8.5-10.1); Chloride 103 mmol/L (98-107); Creatinine, Serum 1.12 mg/dL (0.70-1.30); EST Glomerular Filtration Rate 70 mL/min (>60); Est Glom Filt Rate - Afr Amer 84 mL/min (>60); Estimated Creatinine Clearance 60.66 ml/min; Globulin 3.8 g/dL (2.2-4.2); Glucose 115 mg/dL (74-106); Potassium 4.4 mmol/L (3.5-5.1); Protein, Total 6.4 g/dL (6.4-8.2); Sodium Level 139 mmol/L (136-145)
--- NOTE | 2021-05-04 09:20 | NURSING ---
up to BSC, oxygen up to 15L high flow and 100% NRB mask, drops to 87-90%.
[2021-05-04] MEDS: dexAMETHasone 2 MG TABLET 6 MG PO (09:38)
[2021-05-04] MEDS: Senna/Docusate Sodium 1 Tablet 2 TABLET PO (09:38)
[2021-05-04] MEDS: Pantoprazole Sodium 40 MG Tablet PO ×2 (09:38→20:49)
[2021-05-04] MEDS: Enoxaparin 30 MG/0.3 ML Syringe SC ×2 (09:38→20:49)
[2021-05-04] MEDS: Lisinopril 20 MG Tablet PO (09:38)
[2021-05-04] MEDS: guaiFENesin/D-Methorphan TAB.SR.12H 1 TABLET PO ×2 (09:40→20:49)
--- NOTE | 2021-05-04 11:19 | NURSING ---
attempted to phone spouse to give update at number listed in demographics sheet- no answer/no answering machine
[2021-05-04] MEDS: Polyethylene Glycol 3350 17 GM PACKET PO (12:28)
--- NOTE | 2021-05-04 12:32 | NURSING ---
spo2 94-95% with 10L high flow and 100% NRB mask. pt sob with conversation, lungs diminished. pt states he is feeling anxious and doesn't feel like doing anything. pt does i.s. and then is agreeable to lay flat onto his right side, still refuses to lay on his stomach.
--- NOTE | 2021-05-04 13:17 | NURSING ---
spo2 84% on 10L high flow and 100% NRB with standing and pivoting to chair. up to 15L high flow and 100% NRB to help with recovery and up to 90% spo2 within a few minutes.
--- NOTE | 2021-05-04 13:22 | PN.HOSP_ITS ---
Subjective Subjective Patient is very short of breath on nonrebreather 15 L of oxygen. Complain of pleuritic type pain on deep inspiration. Mild dry cough. Objective Data Objective Data Vital Signs: Vital Signs Temp Pulse Resp BP Pulse Ox 96.8 F L 63 32 H 106/52 L 98 05/04/21 12:26 05/04/21 12:53 05/04/21 12:42 05/04/21 12:26 05/04/21 12:42 Oxygen Flow Rate (L/min) 10 Oxygen Delivery Method Nasal Cannula Weight: 246 lb 7.629 oz Body Mass Index (BMI) 38.6 Intake & Output: Intake and Output for Last 24 Hours 05/02/21 05/03/21 05/04/21 23:59 23:59 23:59 Intake Total 1866.67 / 2166.67 2990 / 3290 500 / 500 Output Total 700 / 700 Balance 1866.67 / 1466.67 2290 / 2590 500 / 500 Lab / Micro Data Result Diagrams: 05/03/21 05:30 05/04/21 06:14 Labs: Laboratory Results - last 24 hr 05/04/21 06:14: Sodium 139, Potassium 4.4, Chloride 103, Carbon Dioxide 29.0, Anion Gap 7, BUN 32 H, Creatinine 1.12, Estim Creat Clear Calc 60.66, Est GFR (MDRD) Af Amer 84, Est GFR (MDRD) Non-Af 70, BUN/Creatinine Ratio 28.6 H, Glucose 115 H, Calcium 8.7, Total Bilirubin 0.60, AST 45 H, ALT 88 H, Alkaline Phosphatase 61, Total Protein 6.4, Albumin 2.6 L, Globulin 3.8, Albumin/Globulin Ratio 0.7 L Micro: Microbiology 05/02/21 23:20 Sputum, Expectorated/Coughed Gram Stain - Final 05/02/21 23:20 Sputum, Expectorated/Coughed Respiratory Culture - Preliminary Alpha Hemolytic Streptococcus 05/02/21 12:34 Blood Culture (Wb) - Anticubital Left Bacteria Detection (PCR) - Final Staphylococcus epidermidis 05/02/21 12:34 Blood Culture (Wb) - Anticubital Left Blood Culture - Preliminary Staphylococcus epidermidis 05/02/21 21:30 Urine, Clean Catch Legionella Antigen - Final 05/02/21 21:30 Urine, Clean Catch Streptococcus pneumoniae Antigen (M - Final Physical Exam Narrative General: Alert, Oriented x3, Cooperative, looks sick HEENT: Atraumatic, PERRLA, EOMI, Normocephalic Oral: No Gingival or Mucosal Lesions/ Ulcerations Neck: Supple, No JVD, Negative Carotid Bruits Lungs: Air entry severely diminished in bilateral lung bases. Bilateral fine lung crepitations. Dyspnea at rest. On nonrebreather. Cardiovascular: Regular rate, Regular Rhythm, Normal S1, Normal S2, No murmurs Abdomen: Mild tenderness in epigastric region. Bowel Sounds Present, Soft, Non- Distended : No renal angle tenderness. No suprapubic tenderness. Extremities: No edema, Capillary Refill Less than 3 Seconds Skin: No rashes, No breakdown Musculoskeletal: No Tenderness to Palpation of Joints or Extremities Neurological: Cranial nerves II-XII grossly intact, DTR 2+/4 and Symmetrical, Neuro grossly intact Psych/Mental Status: Flat affect. Assessment & Plan Assessment/Plan (1) COVID-19: PLAN: 1. Acute hypoxic respiratory failure secondary to bilateral COVID- 19 pneumonia: Patient is being admitted on MedSurg floor. Continue Decadron. Patient is out of window for remdesivir. Oxygen therapy to keep pulse ox more than 92%. Pneumonia including urinary antigens, blood culture and sputum culture ordered. If patient oxygenation worsens, might need baricitinib. 05/03: D-dimer normal. Inflammatory markers fibrinogen, LDH are elevated. S kait transaminases are elevated suggestive of acute viral hepatitis from COVID- 19. Monitor CBC and CMP daily. Blood culture positive for staph epidermidis probably skin contamination. Sputum culture shows 2+ gram-positive cocci, 2+ gram-positive rods. Urinary antigens are negative. Discontinue IV fluid. 05/04: Patient very short of breath. On nonrebreather then was put on airborne/CPAP. Oyster Shipper and ID consulted. I think patient is appropriate candidate for baricitinib. 2. GERD, PUD: Protonix 40 mg IV given in ED. On Protonix 40 mg oral twice daily. 3. Hypertension: Currently normotensive. Lisinopril continued with holding parameters. 4. Other comorbidities include bilateral knee joint arthritis: Home medications reconciliation done Advanced directive: Living will/advanced directive/end of life care: Patient does not have living will or advanced directive or power of real estate attorney for health. His is next of kin. Full code Total time of the visit including total time spent in counseling or coordination of care, (more than 50% of the total time, spent in obtaining medical information from nurses and other ancillary care providers,explaining to the patient about labs, imaging, diagnosis and management), discussion with consultants, respiratory therapist, review of labs and imaging is 30 minutes. Charges/Coding Visit Charges Inpatient E&M: 41237 Subs Hosp L3
--- NOTE | 2021-05-04 13:56 | EX.PCM.CONCC ---
Assessment & Plan Assessment/Plan (1) COVID-19: PLAN: RECOMMENDATIONS: 1. Continue supplemental oxygen as needed to keep saturations greater than 90% 2. Challenge with diuretics as renal function allows 3. Aggressive electrolyte repletion 4. Encourage Acapella, incentive spirometer and prone positioning as able 5. Continue Decadron. Consider ID consult for baricitinib 6. Aggressive control of hyperglycemia if develops IMPRESSIONS: 1. Acute hypoxic respiratory failure secondary to COVID-19 Patient with extensive bilateral groundglass opacities on presentation. Patient has had worsening in oxygenation since presentation. This may be secondary to progression of disease as patient did present relatively early. However, patient is also positive almost 5 L from a fluid status standpoint. Would recommend diuresis as tolerated. Patient is not using Acapella, incentive spirometer or doing prone positioning, which worsens his prognosis. Continue with Decadron. Consider ID consult for baricitinib. Monitor renal and liver functions appropriately. Patient will be challenged with Lasix therapy 2. Obesity/nonvaccinated status/hypertension/advanced age Complicates care, management, recovery and prognosis. Okay to continue with baseline medications. Patient may require additional insulin therapy to maintain euglycemia given Decadron therapy. HPI Consult Data Date of Consult: 05/04/21 HPI Narrative HPI Narrative: HOA WHITAKER is a 66 M, with past medical history listed below, who presented to [facility] on 04/29/2021 secondary to progressive chest pain, cough and fatigue. Patient reportedly started to have a slight sore throat approximately 5 days prior to presentation. Patient was admitted for only a short stay and then discharged. Patient subsequently came back to the ER on 05/02/2021 after being found to have saturations of 85% on room air. Patient had stated he developed 2 episodes of diarrhea and was attempting to treat this with Tylenol and Motrin. Patient had reported a headache, but this was responsive to this therapy. Patient did also reported some night sweats and some nausea. This was worse with eating and drinking. Patient does have a history of hypertension and GERD, but felt that this was different. In the ER, patient was noted to have a temperature of 99.6 ?F and was slightly tachypneic at 20 breaths/min during the first ER visit. However, the second ER visit patient was requiring 5 to 6 L nasal cannula to maintain saturations. Patient was tachypneic to 27 breaths/min. Laboratory data showed a white blood cell count of 8.3, hemoglobin of 16.4, creatinine of 1.27 and slightly elevated liver enzymes. Pro calcitonin was within normal limits. Lipase was normal. Chest x-ray once again showed bilateral patchy infiltrates. Over the course of patient's hospitalization, oxygenation has continued to worsen, so a pulmonary consult was obtained. On my evaluation, patient was using a nasal cannula and nonrebreather at the same time. An Airvo machine was being prepped for use. Patient had reported some shortness of breath with exertion, but overall felt nervous and scared about the possible outcomes. 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 Patient has never been a smoker. Patient has not required supplemental oxygen previously. Patient has been very resistant to Acapella, incentive spirometer and prone positioning. Patient states the prone positioning takes his breath away. Respiratory had reported the patient was not doing well with getting to the bedside chair. Patient was reporting a vague epigastric pain that was slightly worse with palpation. Patient did have a nonproductive cough most of the time, but over the last 24 hours has started to make clear to white sputum. Review of systems otherwise negative from a constitutional, HEENT, respiratory, cardiovascular, GI, genitourinary, musculoskeletal, skin, neurologic, psychiatric and hematologic system unless stated above. [facility] Medical History GERD (gastroesophageal reflux disease) HTN (hypertension) Inguinal hernia Home Medications antiarthritic combination no.2 900 mg tablet 900 mg PO DAILY 07/13/20 [History Last Taken Unknown] lisinopril 20 mg tablet 20 mg PO DAILY 07/13/20 [History Last Taken Unknown] omeprazole 40 mg capsule,delayed release 40 mg PO BID 07/13/20 [History Last Taken Unknown] dexamethasone 6 mg PO DAILY #5 tab 04/29/21 [Rx Last Taken Unknown] hydrocodone-acetaminophen 1 tab PO Q6H PRN PRN 3 Days #12 tablet 04/29/21 [Rx Last Taken Unknown] Allergy/AdvReac Type Severity Reaction Status Date / Time No Known Allergies Allergy Unverified 04/29/21 08:45 Family History Mother Cancer ovarian Surgical History S/P right inguinal hernia repair Social History Smoking Status: Never smoker alcohol intake: current alcohol intake frequency: holidays/special occasions only ROS ROS Narrative See HPI Physical Exam Const alert, oriented x3 and healthy appearing General Appearance: cooperative, well developed and anxious; Negative for on BiPAP Nutritional Appearance: obese HEENT normocephalic, head/scalp atraumatic and moist oral mucous membranes HEENT Narrative: Slight scleral injection noted Eyes PERRL and EOMs intact bilaterally Neck full ROM and no lymphadenopathy Chest inspection of chest normal Chest: symmetrical chest wall rise; Negative for crepitus Resp Resp Narrative: Mild conversational dyspnea Auscultation: diminished lung sounds; Negative for rales, rhonchi or wheezes Percussion: Negative for dullness Cardio regular rate, regular rhythm, S1 normal heart sound, S2 normal heart sound, no murmurs, no rub and no gallops GI normal to inspection, nondistended, normoactive bowel sounds no CVA tenderness Extremity no clubbing, cyanosis or edema Skin no rashes or lesions noted Neuro oriented x3, CN's II-XII intact bilaterally, moves all extremities and no focal motor deficits Psych cooperative and affect normal Lab / Micro Data Result Diagrams: 05/03/21 05:30 05/04/21 06:14 Labs: Laboratory Results - last 24 hr 05/04/21 06:14: Sodium 139, Potassium 4.4, Chloride 103, Carbon Dioxide 29.0, Anion Gap 7, BUN 32 H, Creatinine 1.12, Estim Creat Clear Calc 60.66, Est GFR (MDRD) Af Amer 84, Est GFR (MDRD) Non-Af 70, BUN/Creatinine Ratio 28.6 H, Glucose 115 H, Calcium 8.7, Total Bilirubin 0.60, AST 45 H, ALT 88 H, Alkaline Phosphatase 61, Total Protein 6.4, Albumin 2.6 L, Globulin 3.8, Albumin/Globulin Ratio 0.7 L Micro: Microbiology 05/02/21 23:20 Sputum, Expectorated/Coughed Gram Stain - Final 05/02/21 23:20 Sputum, Expectorated/Coughed Respiratory Culture - Preliminary Alpha Hemolytic Streptococcus 05/02/21 12:34 Blood Culture (Wb) - Anticubital Left Bacteria Detection (PCR) - Final Staphylococcus epidermidis 05/02/21 12:34 Blood Culture (Wb) - Anticubital Left Blood Culture - Preliminary Staphylococcus epidermidis Charges/Coding Visit Charges Inpatient E&M: 98476 Init Hosp L3
--- NOTE | 2021-05-04 14:02 | NURSING ---
CPS at bedside with airvo. Said nurse has been 1:1 wth pt
[2021-05-04] MEDS: Furosemide 40 MG/4 ML Vial IV (14:26)
[2021-05-04] MEDS: 0.9% Saline Lock 10 ML Syringe IV ×2 (14:26→17:13)
[2021-05-04] MEDS: Sodium Chloride 0.65% 1 SPRAY SPRAY.BTL 2 SPRAY NASAL (17:12)
[2021-05-05] VITALS (14 sets, daily range): BP systolic 94–150; BP diastolic 54–88; PULSE 59–78; RESP 18–25; TEMP 35.9–36.9; O2SAT 84–98
[2021-05-05 09:16] LABS: Anion Gap 6 (5-15); BUN 39 mg/dL (7-18); Calcium,Total 8.8 mg/dL (8.5-10.1); Chloride 104 mmol/L (98-107); Creatinine, Serum 1.26 mg/dL (0.70-1.30); EST Glomerular Filtration Rate 61 mL/min (>60); Est Glom Filt Rate - Afr Amer 74 mL/min (>60); Estimated Creatinine Clearance 53.92 ml/min; Glucose 116 mg/dL (74-106); Magnesium 2.2 mg/dL (1.6-2.6); Phosphorus 3.2 mg/dL (2.5-4.9); Potassium 4.2 mmol/L (3.5-5.1); Sodium Level 140 mmol/L (136-145)
[2021-05-05] MEDS: dexAMETHasone 2 MG TABLET 6 MG PO (10:03)
[2021-05-05] MEDS: Enoxaparin 30 MG/0.3 ML Syringe SC ×2 (10:03→21:15)
[2021-05-05] MEDS: guaiFENesin/D-Methorphan TAB.SR.12H 1 TABLET PO (10:04)
[2021-05-05] MEDS: Pantoprazole Sodium 40 MG Tablet PO ×2 (10:04→21:15)
--- NOTE | 2021-05-05 10:09 | PCM.PN.INT ---
Assessment & Plan Assessment/Plan (1) COVID-19: PLAN: RECOMMENDATIONS: 1. Continue supplemental oxygen as needed to keep saturations greater than 90% 2. Challenge with diuretics as renal function allows 3. Aggressive electrolyte repletion 4. Encourage Acapella, incentive spirometer and prone positioning as able 5. Continue Decadron. Await ID consult for baricitinib 6. Aggressive control of hyperglycemia if develops IMPRESSIONS: 1. Acute hypoxic respiratory failure secondary to COVID-19 Patient with extensive bilateral groundglass opacities on presentation. Patient has had worsening in oxygenation since presentation. This may be secondary to progression of disease as patient did present relatively early. However, patient is also positive almost 5 L from a fluid status standpoint. Would recommend diuresis as tolerated. Patient is not using Acapella, incentive spirometer or doing prone positioning, which worsens his prognosis. We will continue to reinforce this behavior. Continue with Decadron. Await ID consult for baricitinib. Monitor renal and liver functions appropriately. Patient will be challenged with p.o. Lasix therapy. Sputum culture is relatively unremarkable. No antibiotics at this time. 2. Obesity/nonvaccinated status/hypertension/advanced age Complicates care, management, recovery and prognosis. Okay to continue with baseline medications. Patient may require additional insulin therapy to maintain euglycemia given Decadron therapy. Subjective Subjective Patient did okay overnight from a hemodynamic standpoint. Oxygen requirements have increased. Patient did have a syncopal episode that resolved spontaneously. Patient is reporting an abrasion on his right knee, but otherwise no ill effects. Patient is having a cough intermittently productive. Objective Data Objective Data Vital Signs: Vital Signs Temp Pulse Resp BP Pulse Ox 35.9 C L 77 24 H 150/88 H 88 05/05/21 06:42 05/05/21 06:56 05/05/21 06:56 05/05/21 06:42 05/05/21 06:56 Oxygen Flow Rate (L/min) 15 Oxygen Delivery Method Non-Rebreather Weight: 111.8 kg Body Mass Index (BMI) 38.6 Intake & Output: Intake and Output for Last 24 Hours 05/03/21 05/04/21 05/05/21 23:59 23:59 23:59 Intake Total 2990 / 3290 790.25 / 790.25 400 / 400 Output Total 700 / 700 825 / 825 200 / 200 Balance 2290 / 2590 -34.75 / -34.75 200 / 200 Lab / Micro Data Result Diagrams: 05/03/21 05:30 05/05/21 08:36 Labs: Laboratory Results - last 24 hr 05/05/21 08:36: Sodium 140, Potassium 4.2, Chloride 104, Carbon Dioxide 30.0, Anion Gap 6, BUN 39 H, Creatinine 1.26, Estim Creat Clear Calc 53.92, Est GFR (MDRD) Af Amer 74, Est GFR (MDRD) Non-Af 61, BUN/Creatinine Ratio 31.0 H, Glucose 116 H, Calcium 8.8, Phosphorus 3.2, Magnesium 2.2 Micro: Microbiology 05/02/21 23:20 Sputum, Expectorated/Coughed Gram Stain - Final 05/02/21 23:20 Sputum, Expectorated/Coughed Respiratory Culture - Final Presumptive C albicans Mixed Melly 05/02/21 12:34 Blood Culture (Wb) - Anticubital Left Bacteria Detection (PCR) - Final Staphylococcus epidermidis 05/02/21 12:34 Blood Culture (Wb) - Anticubital Left Blood Culture - Preliminary Staphylococcus epidermidis 05/02/21 21:30 Urine, Clean Catch Legionella Antigen - Final 05/02/21 21:30 Urine, Clean Catch Streptococcus pneumoniae Antigen (M - Final Physical Exam Const alert, oriented x3 and healthy appearing General Appearance: cooperative, well developed and anxious; Negative for on BiPAP Nutritional Appearance: obese HEENT normocephalic, head/scalp atraumatic and moist oral mucous membranes HEENT Narrative: Slight scleral injection noted Eyes PERRL and EOMs intact bilaterally Neck full ROM and no lymphadenopathy Chest inspection of chest normal Chest: symmetrical chest wall rise; Negative for crepitus Resp Resp Narrative: Mod conversational dyspnea Auscultation: diminished lung sounds; Negative for rales, rhonchi or wheezes Percussion: Negative for dullness Cardio regular rate, regular rhythm, S1 normal heart sound, S2 normal heart sound, no murmurs, no rub and no gallops GI normal to inspection, nondistended, normoactive bowel sounds no CVA tenderness Extremity no clubbing, cyanosis or edema Skin no rashes or lesions noted Neuro oriented x3, CN's II-XII intact bilaterally, moves all extremities and no focal motor deficits Psych cooperative and affect normal Charges/Coding Visit Charges Inpatient E&M: 34588 Subs Hosp L3
[2021-05-05] MEDS: Furosemide 40 MG Tablet PO (10:23)
--- NOTE | 2021-05-05 14:01 | NURSING ---
pt given printout on olumint-Rx not on unit for pt administration, not in accudose for doseage
[2021-05-05] MEDS: Acetaminophen 325 MG Tablet 650 MG PO (15:14)
--- NOTE | 2021-05-05 17:57 | PCM.PN.HOSP ---
Subjective Subjective Patient was seen and examined today, at the time of this dictation, patient is on 8 L of oxygen via nasal cannula. Patient denies any fevers or chills. Infectious diseases saw the patient today and placed him on baricitinib. I have elected to stop his Rocephin, I do not believe the patient needs this at this time Objective Data Objective Data Vital Signs: Vital Signs Temp Pulse Resp BP Pulse Ox 98.0 F 71 18 106/64 95 05/05/21 15:00 05/05/21 15:00 05/05/21 15:00 05/05/21 15:00 05/05/21 16:00 Oxygen Flow Rate (L/min) 8 Oxygen Delivery Method Nasal Cannula Weight: 111.8 kg Body Mass Index (BMI) 38.6 Intake & Output: Intake and Output for Last 24 Hours 05/03/21 05/04/21 05/05/21 23:59 23:59 23:59 Intake Total 2990 / 3290 790.25 / 790.25 450 / 450 Output Total 700 / 700 825 / 825 200 / 200 Balance 2290 / 2590 -34.75 / -34.75 250 / 250 Lab / Micro Data Result Diagrams: 05/03/21 05:30 05/05/21 08:36 Labs: Laboratory Results - last 24 hr 05/05/21 08:36: Sodium 140, Potassium 4.2, Chloride 104, Carbon Dioxide 30.0, Anion Gap 6, BUN 39 H, Creatinine 1.26, Estim Creat Clear Calc 53.92, Est GFR (MDRD) Af Amer 74, Est GFR (MDRD) Non-Af 61, BUN/Creatinine Ratio 31.0 H, Glucose 116 H, Calcium 8.8, Phosphorus 3.2, Magnesium 2.2 Micro: Microbiology 05/02/21 23:20 Sputum, Expectorated/Coughed Gram Stain - Final 05/02/21 23:20 Sputum, Expectorated/Coughed Respiratory Culture - Final Presumptive C albicans Mixed Melly 05/02/21 12:34 Blood Culture (Wb) - Anticubital Left Bacteria Detection (PCR) - Final Staphylococcus epidermidis 05/02/21 12:34 Blood Culture (Wb) - Anticubital Left Blood Culture - Preliminary Staphylococcus epidermidis 05/02/21 21:30 Urine, Clean Catch Legionella Antigen - Final 05/02/21 21:30 Urine, Clean Catch Streptococcus pneumoniae Antigen (M - Final Physical Exam Const alert, oriented x3 and no apparent distress General Appearance: cooperative, well kempt and well developed Orientation / Consciousness: awake, oriented to person, oriented to place and oriented to time HEENT normocephalic, head/scalp atraumatic and moist oral mucous membranes Head and Scalp: normocephalic Eyes PERRL, EOMs intact bilaterally and conjunctivae normal Neck nuchal rigidity, supple, no JVD, thyroid normal and no carotid bruits General: trachea midline Resp normal respiratory effort and clear to auscultation bilaterally Auscultation: Negative for rales, rhonchi or wheezes Cardio regular rate, regular rhythm, S1 normal heart sound, S2 normal heart sound, no murmurs, no rub and no gallops GI normal to inspection, nondistended, normoactive bowel sounds, soft to palpation, non-tender and non-distended Extremity no clubbing, cyanosis or edema Skin no rashes or lesions noted General Skin Exam: no breakdown Neuro oriented x3, CN's II-XII intact bilaterally, no focal motor deficits and no sensory deficits noted Sensorium / Orientation: awake and alert Speech: speech normal Psych thought process normal and affect normal Assessment & Plan Assessment/Plan (1) COVID-19: PLAN: 1. COVID-19 pneumonia-continue present treatment per infectious diseases, pulmonary medicine is also participating in his care #2 acute hypoxic respiratory failure secondary to COVID-19 pneumonia-continue to monitor pulse ox and wean oxygen accordingly #3 Essential hypertension Charges/Coding Visit Charges Inpatient E&M: 33450 Subs Hosp L2
--- NOTE | 2021-05-05 20:48 | PCM.CONS.GEN ---
Assessment & Plan Assessment/Plan (1) COVID-19: PLAN: Unvaccinated. Sx started about 04/25. Isolate for 20 days. also sick, recommended she call PCP for monoclonal referral. Off ceftriaxone. CT showed no PE. On airvo. On dex. Reviewed EUA and risks/benefits of baricitinib, he agrees to start. Encouraged vaccine once he is past this illness. Will follow, thank you (2) Hypoxia: HPI Consult Data Date of Consult: 05/05/21 HPI Narrative HPI Narrative: MUSTAPHA WHITAKER, is a 66 M who presented with sx starting around 04/25. got sick after him. Unvaccinated. Developed headache, aches, weakness, fatigue, dry cough, dyspnea, mild diarrhea. No change in taste or smell. Tested (+). Came to ED, admitted on airvo, dex, ceftriaxone. Feeling about the same. Full ROS performed and neg except as noted above. [facility] Medical History (Updated 05/05/21 @ 20:[address] Mustapha Patiño MD) GERD (gastroesophageal reflux disease) HTN (hypertension) Inguinal hernia Home Medications antiarthritic combination no.2 900 mg tablet 900 mg PO DAILY 07/13/20 [History Last Taken Unknown] lisinopril 20 mg tablet 20 mg PO DAILY 07/13/20 [History Last Taken Unknown] omeprazole 40 mg capsule,delayed release 40 mg PO BID 07/13/20 [History Last Taken Unknown] dexamethasone 6 mg PO DAILY #5 tab 04/29/21 [Rx Last Taken Unknown] hydrocodone-acetaminophen 1 tab PO Q6H PRN PRN 3 Days #12 tablet 04/29/21 [Rx Last Taken Unknown] Allergy/AdvReac Type Severity Reaction Status Date / Time No Known Allergies Allergy Unverified 04/29/21 08:45 Family History Mother Cancer ovarian Surgical History S/P right inguinal hernia repair Social History Smoking Status: Never smoker alcohol intake: current alcohol intake frequency: holidays/special occasions only Physical Exam Const alert and oriented x3 Constitutional Narrative: ill appearing General Appearance: cooperative HEENT normocephalic and head/scalp atraumatic Eyes PERRL Neck supple and No nodes Resp Effort and Inspection: labored Auscultation: diminished lung sounds Cardio regular rate and regular rhythm GI normal to inspection, nondistended, normoactive bowel sounds Extremity no clubbing, cyanosis or edema Skin no rashes or lesions noted Neuro CN's II-XII intact bilaterally Lab / Micro Data Result Diagrams: 05/03/21 05:30 05/05/21 08:36 Labs: Laboratory Results - last 24 hr 05/05/21 08:36: Sodium 140, Potassium 4.2, Chloride 104, Carbon Dioxide 30.0, Anion Gap 6, BUN 39 H, Creatinine 1.26, Estim Creat Clear Calc 53.92, Est GFR (MDRD) Af Amer 74, Est GFR (MDRD) Non-Af 61, BUN/Creatinine Ratio 31.0 H, Glucose 116 H, Calcium 8.8, Phosphorus 3.2, Magnesium 2.2 Micro: Microbiology 05/02/21 23:20 Sputum, Expectorated/Coughed Gram Stain - Final 05/02/21 23:20 Sputum, Expectorated/Coughed Respiratory Culture - Final Presumptive C albicans Mixed Melly
[2021-05-05] MEDS: Ascorbic Acid 500 MG Tablet 1000 MG PO (21:14)
[2021-05-05] MEDS: guaiFENesin 1,200 MG Tablet 1200 MG PO (21:15)
--- NOTE | 2021-05-05 23:24 | CPS ---
decreased O2 to 9 lpm
[2021-05-06] VITALS (8 sets, daily range): BP systolic 81–115; BP diastolic 50–60; PULSE 65–85; RESP 18–22; TEMP 35.6–36.8; O2SAT 92–97
--- NOTE | 2021-05-06 08:19 | PCS.PANDOC ---
PANDEMIC DOCUMENTATION INITIATED: Date: 03/08/2021 Time: 190
[2021-05-06] MEDS: dexAMETHasone 2 MG TABLET 6 MG PO (10:45)
[2021-05-06] MEDS: Ascorbic Acid 500 MG Tablet 1000 MG PO ×2 (10:46→20:48)
[2021-05-06] MEDS: guaiFENesin 1,200 MG Tablet 1200 MG PO ×2 (10:46→20:48)
[2021-05-06] MEDS: Enoxaparin 30 MG/0.3 ML Syringe SC ×2 (10:46→20:48)
[2021-05-06] MEDS: Pantoprazole Sodium 40 MG Tablet PO ×2 (10:46→20:48)
--- NOTE | 2021-05-06 11:02 | PCM.PN.ID ---
Physical Exam Narrative Feeling a little better, no fever, no n/v/d. Const alert and no apparent distress General Appearance: cooperative Resp clear to auscultation bilaterally Auscultation: diminished lung sounds Cardio regular rate and regular rhythm GI normal to inspection, nondistended, normoactive bowel sounds Skin no rashes or lesions noted ID ID: Route of nutrition/ use of supplements: [] Nutritional Intake: [] IV Site: [] Barnett Catheter: [] Assessment & Plan Assessment/Plan (1) COVID-19: PLAN: Unvaccinated. Sx started about 04/25. Isolate for 20 days. also sick, recommended she call PCP for monoclonal referral. Off ceftriaxone. CT showed no PE. On airvo. On dex, baricitinib. Encouraged vaccine once he is past this illness. Will follow (2) Hypoxia:
--- NOTE | 2021-05-06 14:19 | PCM.PN.INT ---
Assessment & Plan Assessment/Plan (1) COVID-19: PLAN: RECOMMENDATIONS: 1. Continue supplemental oxygen as needed to keep saturations greater than 90% 2. Challenge with diuretics as renal function allows 3. Aggressive electrolyte repletion 4. Encourage Acapella, incentive spirometer and prone positioning as able 5. Continue Decadron (05/13/2021) and baricitinib (05/18/2021) 6. Aggressive control of hyperglycemia if develops IMPRESSIONS: 1. Acute hypoxic respiratory failure secondary to COVID-19 Patient with extensive bilateral groundglass opacities on presentation. Patient has had worsening in oxygenation since presentation. This may be secondary to progression of disease as patient did present relatively early. However, patient is also positive almost 5 L from a fluid status standpoint. Patient appears to have responded well to diuresis. Patient is not using Acapella, incentive spirometer or doing prone positioning, which worsens his prognosis. We will continue to reinforce this behavior. Continue with Decadron. We will complete baricitinib course as suggested by ID. Monitor renal and liver functions appropriately. Sputum culture is relatively unremarkable. No antibiotics at this time. 2. Obesity/nonvaccinated status/hypertension/advanced age Complicates care, management, recovery and prognosis. Okay to continue with baseline medications. Patient may require additional insulin therapy to maintain euglycemia given Decadron therapy. Subjective Subjective Patient did well overnight. No acute issues were reported. Patient overall feels subjectively unchanged compared to previous. Patient is not reporting any epistaxis or nausea. Patient does state that he was in the chair for most of the morning. Objective Data Objective Data Vital Signs: Vital Signs Temp Pulse Resp BP Pulse Ox 35.6 C L 75 22 H 81/55 L 92 05/06/21 10:53 05/06/21 10:53 05/06/21 10:53 05/06/21 10:53 05/06/21 10:53 Oxygen Flow Rate (L/min) 9 Oxygen Delivery Method Nasal Cannula Weight: 111.8 kg Body Mass Index (BMI) 38.6 Intake & Output: Intake and Output for Last 24 Hours 05/04/21 05/05/21 05/06/21 23:59 23:59 23:59 Intake Total 790.25 / 790.25 450 / 450 Output Total 825 / 825 200 / 200 200 / 200 Balance -34.75 / -34.75 250 / 250 -200 / -200 Lab / Micro Data Result Diagrams: 05/03/21 05:30 05/05/21 08:36 Micro: Microbiology 05/02/21 23:20 Sputum, Expectorated/Coughed Gram Stain - Final 05/02/21 23:20 Sputum, Expectorated/Coughed Respiratory Culture - Final Presumptive C albicans Mixed Melly 05/02/21 12:34 Blood Culture (Wb) - Anticubital Left Bacteria Detection (PCR) - Final Staphylococcus epidermidis 05/02/21 12:34 Blood Culture (Wb) - Anticubital Left Blood Culture - Preliminary Staphylococcus epidermidis 05/02/21 21:30 Urine, Clean Catch Legionella Antigen - Final 05/02/21 21:30 Urine, Clean Catch Streptococcus pneumoniae Antigen (M - Final Physical Exam Const alert, oriented x3 and healthy appearing General Appearance: cooperative, well developed and anxious; Negative for on BiPAP Nutritional Appearance: obese HEENT normocephalic, head/scalp atraumatic and moist oral mucous membranes HEENT Narrative: No scleral injection noted Eyes PERRL and EOMs intact bilaterally Neck full ROM and no lymphadenopathy Chest inspection of chest normal Chest: symmetrical chest wall rise; Negative for crepitus Resp Resp Narrative: Mild conversational dyspnea Auscultation: diminished lung sounds; Negative for rales, rhonchi or wheezes Percussion: Negative for dullness Cardio regular rate, regular rhythm, S1 normal heart sound, S2 normal heart sound, no murmurs, no rub and no gallops GI normal to inspection, nondistended, normoactive bowel sounds no CVA tenderness Extremity no clubbing, cyanosis or edema Skin no rashes or lesions noted Neuro oriented x3, CN's II-XII intact bilaterally, moves all extremities and no focal motor deficits Psych cooperative and affect normal Charges/Coding Visit Charges Inpatient E&M: 16543 Subs Hosp L2
--- NOTE | 2021-05-06 18:11 | PCM.PN.HOSP ---
Subjective Subjective Patient was seen and examined today, his oxygenation has improved, he is currently on 5 L via nasal cannula. Objective Data Objective Data Vital Signs: Vital Signs Temp Pulse Resp BP Pulse Ox 96.4 F L 85 20 H 115/60 94 05/06/21 18:05 05/06/21 18:05 05/06/21 18:05 05/06/21 18:05 05/06/21 18:05 Oxygen Flow Rate (L/min) 5 Oxygen Delivery Method Nasal Cannula Weight: 111.8 kg Body Mass Index (BMI) 38.6 Intake & Output: Intake and Output for Last 24 Hours 05/04/21 05/05/21 05/06/21 23:59 23:59 23:59 Intake Total 790.25 / 790.25 450 / 450 Output Total 825 / 825 200 / 200 200 / 200 Balance -34.75 / -34.75 250 / 250 -200 / -200 Lab / Micro Data Result Diagrams: 05/03/21 05:30 05/05/21 08:36 Micro: Microbiology 05/02/21 23:20 Sputum, Expectorated/Coughed Gram Stain - Final 05/02/21 23:20 Sputum, Expectorated/Coughed Respiratory Culture - Final Presumptive C albicans Mixed Melly 05/02/21 12:34 Blood Culture (Wb) - Anticubital Left Bacteria Detection (PCR) - Final Staphylococcus epidermidis 05/02/21 12:34 Blood Culture (Wb) - Anticubital Left Blood Culture - Preliminary Staphylococcus epidermidis 05/02/21 21:30 Urine, Clean Catch Legionella Antigen - Final 05/02/21 21:30 Urine, Clean Catch Streptococcus pneumoniae Antigen (M - Final Physical Exam Narrative Const alert, oriented x3 and no apparent distress General Appearance: cooperative, well kempt and well developed Orientation / Consciousness: awake, oriented to person, oriented to place and oriented to time HEENT normocephalic, head/scalp atraumatic and moist oral mucous membranes Head and Scalp: normocephalic Eyes PERRL, EOMs intact bilaterally and conjunctivae normal Neck nuchal rigidity, supple, no JVD, thyroid normal and no carotid bruits General: trachea midline Resp normal respiratory effort and clear to auscultation bilaterally Auscultation: Negative for rales, rhonchi or wheezes Cardio regular rate, regular rhythm, S1 normal heart sound, S2 normal heart sound, no murmurs, no rub and no gallops GI normal to inspection, nondistended, normoactive bowel sounds, soft to palpation, non-tender and non-distended Extremity no clubbing, cyanosis or edema Skin no rashes or lesions noted General Skin Exam: no breakdown Neuro oriented x3, CN's II-XII intact bilaterally, no focal motor deficits and no sensory deficits noted Sensorium / Orientation: awake and alert Speech: speech normal Psych thought process normal and affect normal Assessment & Plan Assessment/Plan (1) COVID-19: PLAN: 1. COVID-19 pneumonia-continue present treatment per infectious diseases, pulmonary medicine is also participating in his care, according to documentation, patient was positive for COVID-19 on April 22, 2021. #2 acute hypoxic respiratory failure secondary to COVID-19 pneumonia-continue to monitor pulse ox and wean oxygen accordingly, patient's oxygenation is improved today #3 Essential hypertension Charges/Coding Visit Charges Inpatient E&M: 26167 Subs Hosp L2
[2021-05-07] VITALS (10 sets, daily range): BP systolic 98–120; BP diastolic 63–72; PULSE 69–80; RESP 18–20; TEMP 36.4–36.7; O2SAT 80–97
[2021-05-07 07:42] LABS: Anion Gap 6 (5-15); BUN 39 mg/dL (7-18); BUN/Creat Ratio 33.6 RATIO (10-20); Calcium,Total 8.7 mg/dL (8.5-10.1); Chloride 105 mmol/L (98-107); Creatinine, Serum 1.16 mg/dL (0.70-1.30); EST Glomerular Filtration Rate 67 mL/min (>60); Est Glom Filt Rate - Afr Amer 81 mL/min (>60); Estimated Creatinine Clearance 58.57 ml/min; Glucose 118 mg/dL (74-106); Potassium 4.3 mmol/L (3.5-5.1); Sodium Level 138 mmol/L (136-145)
[2021-05-07] MEDS: Ascorbic Acid 500 MG Tablet 1000 MG PO ×2 (08:11→21:09)
[2021-05-07] MEDS: guaiFENesin 1,200 MG Tablet 1200 MG PO ×2 (08:12→21:08)
[2021-05-07] MEDS: dexAMETHasone 2 MG TABLET 6 MG PO (08:12)
[2021-05-07] MEDS: Polyethylene Glycol 3350 17 GM PACKET PO (08:14)
[2021-05-07] MEDS: Lisinopril 20 MG Tablet PO (08:14)
[2021-05-07] MEDS: Pantoprazole Sodium 40 MG Tablet PO ×2 (08:14→21:08)
[2021-05-07] MEDS: Furosemide 40 MG Tablet PO (08:14)
--- NOTE | 2021-05-07 08:23 | PN.CC_ITS ---
Assessment & Plan Assessment/Plan (1) COVID-19: PLAN: RECOMMENDATIONS: 1. Continue supplemental oxygen as needed to keep saturations greater than 90% 2. Challenge with diuretics as renal function allows 3. Aggressive electrolyte repletion 4. Encourage Acapella, incentive spirometer and prone positioning as able 5. Continue Decadron (05/13/2021) and baricitinib (05/18/2021) 6. Potential discharge when able to tolerate ambulation on 6 L or less IMPRESSIONS: 1. Acute hypoxic respiratory failure secondary to COVID-19 Patient with extensive bilateral groundglass opacities on presentation. Patient has had worsening in oxygenation since presentation. This may be secondary to progression of disease as patient did present relatively early. However, patient is also positive almost 5 L from a fluid status standpoint. P atient appears to have responded well to diuresis. Patient is not using Acapella, incentive spirometer or doing prone positioning, which worsens his prognosis. We will continue to reinforce this behavior. Continue with Decadron. We will complete baricitinib course as suggested by ID or until pat ient is discharged. Monitor renal and liver functions appropriately. Patient was advised to get a pulse oximeter for discharge. Patient can be discharged when able to tolerate ambulation on 6 L or less. Patient would follow-up in our office in 4 to 6 weeks for evaluation of cessation of supplemental oxygen. 2. Obesity/nonvaccinated status/hypertension/advanced age Complicates care, management, recovery and prognosis. Okay to continue with baseline medications. Patient may require additional insulin therapy to maintain euglycemia given Decadron therapy. Subjective Subjective Patient did okay overnight. No epistaxis has been reported. Patient does continue to report dyspnea on exertion, but overall feels subjectively unchanged compared to previous. Objective Data Objective Data Vital Signs: Vital Signs Temp Pulse Resp BP Pulse Ox 36.4 C L 69 18 117/72 96 05/07/21 08:17 05/07/21 08:17 05/07/21 08:17 05/07/21 08:17 05/07/21 08:17 Oxygen Flow Rate (L/min) [ 7 AMBULATING with Oxygen #3] Oxygen Flow Rate (L/min) [ 5 AMBULATING with Oxygen #2] Oxygen Flow Rate (L/min) [ 4 AMBULATING with Oxygen #1] Oxygen Flow Rate (L/min) [At 4 REST with Oxygen] Oxygen Flow Rate (L/min) [At 0 REST on Room Air] Oxygen Flow Rate (L/min) 4 Oxygen Delivery Method Nasal Cannula Weight: 111.8 kg Body Mass Index (BMI) 38.6 Intake & Output: Intake and Output for Last 24 Hours 05/05/21 05/06/21 05/07/21 23:59 23:59 23:59 Intake Total 450 / 450 Output Total 200 / 200 200 / 200 Balance 250 / 250 -200 / -200 Lab / Micro Data Result Diagrams: 05/03/21 05:30 05/07/21 06:55 Labs: Laboratory Results - last 24 hr 05/07/21 06:55: Sodium 138, Potassium 4.3, Chloride 105, Carbon Dioxide 27.0, Anion Gap 6, BUN 39 H, Creatinine 1.16, Estim Creat Clear Calc 58.57, Est GFR (MDRD) Af Amer 81, Est GFR (MDRD) Non-Af 67, BUN/Creatinine Ratio 33.6 H, Glucose 118 H, Calcium 8.7 Micro: Microbiology 05/02/21 23:20 Sputum, Expectorated/Coughed Gram Stain - Final 05/02/21 23:20 Sputum, Expectorated/Coughed Respiratory Culture - Final Presumptive C albicans Mixed Melly 05/02/21 12:34 Blood Culture (Wb) - Anticubital Left Bacteria Detection (PCR) - Final Staphylococcus epidermidis 05/02/21 12:34 Blood Culture (Wb) - Anticubital Left Blood Culture - Preliminary Staphylococcus epidermidis 05/02/21 21:30 Urine, Clean Catch Legionella Antigen - Final 05/02/21 21:30 Urine, Clean Catch Streptococcus pneumoniae Antigen (M - Final Physical Exam Const alert, oriented x3 and healthy appearing General Appearance: cooperative, well developed and anxious; Negative for on BiPAP Nutritional Appearance: obese HEENT normocephalic, head/scalp atraumatic and moist oral mucous membranes HEENT Narrative: No scleral injection noted Eyes PERRL and EOMs intact bilaterally Neck full ROM and no lymphadenopathy Chest inspection of chest normal Chest: symmetrical chest wall rise; Negative for crepitus Resp Resp Narrative: No conversational dyspnea Auscultation: diminished lung sounds; Negative for rales, rhonchi or wheezes Percussion: Negative for dullness Cardio regular rate, regular rhythm, S1 normal heart sound, S2 normal heart sound, no murmurs, no rub and no gallops GI normal to inspection, nondistended, normoactive bowel sounds no CVA tenderness Extremity no clubbing, cyanosis or edema Skin no rashes or lesions noted Neuro oriented x3, CN's II-XII intact bilaterally, moves all extremities and no focal motor deficits Psych cooperative Mood & Affect: anxious Charges/Coding Visit Charges Inpatient E&M: 06659 Subs Hosp L2
[2021-05-07] MEDS: Enoxaparin 30 MG/0.3 ML Syringe SC ×2 (09:43→21:08)
--- NOTE | 2021-05-07 10:50 | PCA ---
Received a copy of pt's positive COVID result from [facility], placed on patient chart.
--- NOTE | 2021-05-07 18:15 | PCM.PN.HOSP ---
Subjective Subjective Patient was seen and examined today, currently is on 4 L of oxygen via nasal cannula. Patient has no complaints of any chills, fever, or chest discomfort. Objective Data Objective Data Vital Signs: Vital Signs Temp Pulse Resp BP Pulse Ox 98 F 80 20 H 100/65 95 05/07/21 17:00 05/07/21 17:00 05/07/21 17:00 05/07/21 17:00 05/07/21 17:00 Oxygen Flow Rate (L/min) [ 7 AMBULATING with Oxygen #3] Oxygen Flow Rate (L/min) [ 5 AMBULATING with Oxygen #2] Oxygen Flow Rate (L/min) [ 4 AMBULATING with Oxygen #1] Oxygen Flow Rate (L/min) [At 4 REST with Oxygen] Oxygen Flow Rate (L/min) [At 0 REST on Room Air] Oxygen Flow Rate (L/min) 4 Oxygen Delivery Method Nasal Cannula Weight: 111.8 kg Body Mass Index (BMI) 38.6 Intake & Output: Intake and Output for Last 24 Hours 05/05/21 05/06/21 05/07/21 23:59 23:59 23:59 Intake Total 450 / 450 600 / 600 Output Total 200 / 200 200 / 200 Balance 250 / 250 -200 / -200 600 / 600 Lab / Micro Data Result Diagrams: 05/03/21 05:30 05/07/21 06:55 Labs: Laboratory Results - last 24 hr 05/07/21 06:55: Sodium 138, Potassium 4.3, Chloride 105, Carbon Dioxide 27.0, Anion Gap 6, BUN 39 H, Creatinine 1.16, Estim Creat Clear Calc 58.57, Est GFR (MDRD) Af Amer 81, Est GFR (MDRD) Non-Af 67, BUN/Creatinine Ratio 33.6 H, Glucose 118 H, Calcium 8.7 Micro: Microbiology 05/02/21 12:34 Blood Culture (Wb) - Anticubital Left Bacteria Detection (PCR) - Final Staphylococcus epidermidis 05/02/21 12:34 Blood Culture (Wb) - Anticubital Left Blood Culture - Final Staphylococcus epidermidis 05/02/21 10:15 Blood Culture (Wb) - Anticubital Right Blood Culture - Final No growth in 5 days. 05/02/21 23:20 Sputum, Expectorated/Coughed Gram Stain - Final 05/02/21 23:20 Sputum, Expectorated/Coughed Respiratory Culture - Final Presumptive C albicans Mixed Melly 05/02/21 21:30 Urine, Clean Catch Legionella Antigen - Final 05/02/21 21:30 Urine, Clean Catch Streptococcus pneumoniae Antigen (M - Final Physical Exam Narrative alert, oriented x3 and no apparent distress General Appearance: cooperative, well kempt and well developed Orientation / Consciousness: awake, oriented to person, oriented to place and oriented to time HEENT normocephalic, head/scalp atraumatic and moist oral mucous membranes Head and Scalp: normocephalic Eyes PERRL, EOMs intact bilaterally and conjunctivae normal Neck nuchal rigidity, supple, no JVD, thyroid normal and no carotid bruits General: trachea midline Resp normal respiratory effort and clear to auscultation bilaterally Auscultation: Negative for rales, rhonchi or wheezes Cardio regular rate, regular rhythm, S1 normal heart sound, S2 normal heart sound, no murmurs, no rub and no gallops GI normal to inspection, nondistended, normoactive bowel sounds, soft to palpation, non-tender and non-distended Extremity no clubbing, cyanosis or edema Skin no rashes or lesions noted General Skin Exam: no breakdown Neuro oriented x3, CN's II-XII intact bilaterally, no focal motor deficits and no sensory deficits noted Sensorium / Orientation: awake and alert Speech: speech normal Psych thought process normal and affect normal Assessment & Plan Assessment/Plan (1) COVID-19: PLAN: 1. COVID-19 pneumonia-continue present treatment per infectious diseases, pulmonary medicine is also participating in his care, patient was not a candidate for remdesivir, he remains on dexamethasone and baricitinib at this time #2 acute hypoxic respiratory failure secondary to COVID-19 pneumonia-continue to monitor pulse ox and wean oxygen accordingly #3 Essential hypertension Charges/Coding Visit Charges Inpatient E&M: 88156 Subs Hosp L2
[2021-05-08] VITALS (7 sets, daily range): BP systolic 94–117; BP diastolic 51–59; PULSE 62–78; RESP 18; TEMP 36.1–36.8; O2SAT 84–98
[2021-05-08 07:51] LABS: Hematocrit 44.3 % (40-54); Hemoglobin 15.1 g/dL (13.0-16.5); Mean Corp Hgb Conc 34.1 g/dL (32-36); Mean Corpuscular Hgb 30.2 pg (27.0-32.0); Mean Corpuscular Volume 88.6 fL (80-94); Mean Platelet Vol. 10.6 fl (6.2-12.0); Platelet Count 292 K/mm3 (150-450); RBC Distribution Width CV 12.4 % (11.6-14.6); RBC Distribution Width SD 40.1 fl (35.1-43.9); White Blood Count 12.8 K/mm3 (4.4-11.0)
--- NOTE | 2021-05-08 07:53 | PN.CC_ITS ---
Assessment & Plan Assessment/Plan (1) COVID-19: PLAN: RECOMMENDATIONS: 1. Continue supplemental oxygen as needed to keep saturations greater than 90% 2. Challenge with diuretics as renal function allows. Await morning labs 3. Aggressive electrolyte repletion as indicated by labs 4. Encourage Acapella, incentive spirometer and prone positioning as able 5. Continue Decadron (05/13/2021) and baricitinib (05/18/2021) 6. Potential discharge when able to tolerate ambulation on 6 L or less 7. If discharged, discontinue baricitinib, complete Decadron course and follow-up in our office in 4 to 6 weeks IMPRESSIONS: 1. Acute hypoxic respiratory failure secondary to COVID-19 Patient with extensive bilateral groundglass opacities on presentation. Patient has had worsening in oxygenation since presentation. This may be s econdary to progression of disease as patient did present relatively early. However, patient is also positive almost 5 L from a fluid status standpoint. Patient appears to have responded well to diuresis. Patient is not using Acapella, incentive spirometer or doing prone positioning, which worsens his prognosis. We will continue to reinforce this behavior. Continue with Decadron. We will complete baricitinib course as suggested by ID or until patient is discharged. Monitor renal and liver functions appropriately. Patient was advised to get a pulse oximeter for discharge. Patient can be discharged when able to tolerate ambulation on 6 L or less. Patient would follow-up in our office in 4 to 6 weeks for evaluation of cessation of supplemental oxygen. 2. Obesity/nonvaccinated status/hypertension/advanced age Complicates care, management, recovery and prognosis. Okay to continue with baseline medications. Patient may require additional insulin therapy to maintain euglycemia given Decadron therapy. Subjective Subjective Patient did well overnight. No acute issues were reported. Patient reports a good night sleep and feels subjectively improved today. Objective Data Objective Data Vital Signs: Vital Signs Temp Pulse Resp BP Pulse Ox 36.1 C L 62 18 117/59 L 98 05/08/21 03:30 05/08/21 03:30 05/08/21 03:30 05/08/21 03:30 05/08/21 03:30 Oxygen Flow Rate (L/min) [ 7 AMBULATING with Oxygen #3] Oxygen Flow Rate (L/min) [ 5 AMBULATING with Oxygen #2] Oxygen Flow Rate (L/min) [ 4 AMBULATING with Oxygen #1] Oxygen Flow Rate (L/min) [At 4 REST with Oxygen] Oxygen Flow Rate (L/min) [At 0 REST on Room Air] Oxygen Flow Rate (L/min) 4 Oxygen Delivery Method Nasal Cannula Weight: 111.8 kg Body Mass Index (BMI) 38.6 Intake & Output: Intake and Output for Last 24 Hours 05/06/21 05/07/21 05/08/21 23:59 23:59 23:59 Intake Total 600 / 600 300 / 300 Output Total 200 / 200 800 / 800 Balance -200 / -200 600 / 600 -500 / -500 Lab / Micro Data Result Diagrams: 05/08/21 07:18 05/07/21 06:55 Labs: Laboratory Results - last 24 hr 05/08/21 07:18: WBC 12.8 H, RBC 5.00, Hgb 15.1, Hct 44.3, MCV 88.6, MCH 30.2, MCHC 34.1, RDW Std Deviation 40.1, RDW Coeff of [place] 12.4, Plt Count 292, MPV 10.6 Micro: Microbiology 05/02/21 12:34 Blood Culture (Wb) - Anticubital Left Bacteria Detection (PCR) - Final Staphylococcus epidermidis 05/02/21 12:34 Blood Culture (Wb) - Anticubital Left Blood Culture - Final Staphylococcus epidermidis 05/02/21 10:15 Blood Culture (Wb) - Anticubital Right Blood Culture - Final No growth in 5 days. 05/02/21 23:20 Sputum, Expectorated/Coughed Gram Stain - Final 05/02/21 23:20 Sputum, Expectorated/Coughed Respiratory Culture - Final Presumptive C albicans Mixed Melly 05/02/21 21:30 Urine, Clean Catch Legionella Antigen - Final 05/02/21 21:30 Urine, Clean Catch Streptococcus pneumoniae Antigen (M - Final Physical Exam Const alert, oriented x3 and healthy appearing General Appearance: cooperative, well developed and anxious; Negative for on BiPAP Nutritional Appearance: obese HEENT normocephalic, head/scalp atraumatic and moist oral mucous membranes HEENT Narrative: No scleral injection noted Eyes PERRL and EOMs intact bilaterally Neck full ROM and no lymphadenopathy Chest inspection of chest normal Chest: symmetrical chest wall rise; Negative for crepitus Resp Resp Narrative: No conversational dyspnea Auscultation: diminished lung sounds; Negative for rales, rhonchi or wheezes Percussion: Negative for dullness Cardio regular rate, regular rhythm, S1 normal heart sound, S2 normal heart sound, no murmurs, no rub and no gallops GI normal to inspection, nondistended, normoactive bowel sounds no CVA tenderness Extremity no clubbing, cyanosis or edema Skin no rashes or lesions noted Neuro oriented x3, CN's II-XII intact bilaterally, moves all extremities and no focal motor deficits Psych cooperative Mood & Affect: anxious Charges/Coding Visit Charges Inpatient E&M: 13060 Subs Hosp L2
[2021-05-08 08:29] LABS: ALB/GLOB Ratio 0.7 RATIO (0.9-2.4); AST(SGOT) 38 U/L (15-37); Alanine Aminotransfer ALT/SGPT 121 U/L (16-61); Albumin, Serum 2.6 g/dL (3.2-5.0); Alkaline Phosphatase 74 U/L (45-117); Anion Gap 7 (5-15); BUN 41 mg/dL (7-18); BUN/Creat Ratio 33.6 RATIO (10-20); Calcium,Total 8.6 mg/dL (8.5-10.1); Chloride 103 mmol/L (98-107); Creatinine, Serum 1.22 mg/dL (0.70-1.30); EST Glomerular Filtration Rate 63 mL/min (>60); Est Glom Filt Rate - Afr Amer 76 mL/min (>60); Estimated Creatinine Clearance 55.69 ml/min; Globulin 3.8 g/dL (2.2-4.2); Glucose 154 mg/dL (74-106); Potassium 4.3 mmol/L (3.5-5.1); Protein, Total 6.4 g/dL (6.4-8.2); Sodium Level 137 mmol/L (136-145)
[2021-05-08] MEDS: Enoxaparin 30 MG/0.3 ML Syringe SC (09:45)
[2021-05-08] MEDS: Ascorbic Acid 500 MG Tablet 1000 MG PO (09:45)
[2021-05-08] MEDS: Pantoprazole Sodium 40 MG Tablet PO (09:45)
[2021-05-08] MEDS: guaiFENesin 1,200 MG Tablet 1200 MG PO (09:46)
[2021-05-08] MEDS: dexAMETHasone 2 MG TABLET 6 MG PO (09:46)
[2021-05-08] MEDS: Lisinopril 20 MG Tablet PO (09:46)
--- NOTE | 2021-05-08 11:32 | PCM.DC ---
Discharge Instructions Diet Discharge Diet: No restrictions Activity Discharge Activity: Return to Normal Activity Weight Bearing Status: Full weight bearing Follow Up Care Test Results: Test results from this visit will be discussed in further detail at your follow-up appointment, if applicable. 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 Patient Instructions: Coronavirus Disease 2019 (COVID-19): Overview, Coronavirus Disease 2019 (COVID-19): Caring for Yourself or Others, COVID-19: Lying in a Prone Position (Proning), Preventing the Spread of Infection Understanding Isolation Procedures, Disinfecting Your Home of COVID-19 Additional Instructions / Restrictions: Quarantine until 05/15/21 Get the COVID vaccine in two months Use oxygen at 3 liters/min continuously Discharge Orders/Prescriptions Prescriptions: Continued lisinopril 20 mg tablet 20 mg PO DAILY RF: 0 omeprazole 40 mg capsule,delayed release(DR/EC) 40 mg PO BID RF: 0 glucosamine-chondroitin 900 mg tablet 900 mg PO DAILY RF: 0 hydrocodone-acetaminophen 1 TABLET tablet 1 tab PO Q6H PRN PRN (Reason: Pain) 3 Days Qty: 12 RF: 0 Discontinued dexamethasone 6 MG tablet 6 mg PO DAILY Qty: 5 RF: 0 Referrals / Follow Up: Liu Maciel MD [Primary Care Provider] - Within 2 Weeks (see after 05/15/21) Disposition Disposition (needs filled in before D/C Order can be placed): Home, Self Care
[2021-05-08] MEDS: Furosemide 20 MG Tablet PO (11:49)
--- NOTE | 2021-05-08 18:46 | PCM.DC.SUM ---
Providers Date of Admission: 05/02/21 Date of Discharge: 05/08/21 Primary Care Physician: Dr. Liu Maciel MD Consultations 05/04/21 10:15 Consult: Admissions Advisor / Pulmonary Medicine Routine Consulting Provider: [facility] Reason for Consult: + COVID, increase oxygen demands EMERGENT Consult: No Notified: Yes Date Notified: 05/04/21 Time Notified: 10:15 Method of Notification: Text 05/04/21 13:24 Consult: Infectious Disease Routine Consulting Provider: Mustapha Patiño Reason for Consult: severe hypoxia, covid 19, airvo/cpap. Bariticinib EMERGENT Consult: No Notified: Yes Date Notified: 05/04/21 Time Notified: 14:16 Method of Notification: Text Reason For Visit: COVID 19 PNEUMONIA Diagnosis Discharge Diagnosis (1) COVID-19: Status: Acute Code(s): U07.1 - COVID-19 Plan: Final diagnosis: #1 COVID-19 pneumonia #2 acute hypoxic respiratory failure secondary to COVID-19 pneumonia #3 essential hypertension Medications at Discharge Home Medications antiarthritic combination no.2 900 mg tablet 900 mg PO DAILY 07/13/20 lisinopril 20 mg tablet 20 mg PO DAILY 07/13/20 omeprazole 40 mg capsule,delayed release 40 mg PO BID 07/13/20 hydrocodone-acetaminophen 1 tab PO Q6H PRN PRN 3 Days #12 tablet 04/29/21 Hospital Course Operations None Procedures None Summary of Care Provided Minutes Spent on Discharge: 31 Hospital Course: Patient was seen in the emergency room at [facility] with complaints of dyspnea, he was noted to have a pulse ox of 85% on room air. Patient had symptoms of COVID-19 starting 12 days prior and outpatient testing confirmed COVID-19, he was seen on 29 April and was able to be discharged home from the emergency room. Patient was noted to be hypoxic in the emergency room, he was given IV dexamethasone, chest x-ray showed bilateral pulmonary infiltrates which had worsened since his previous chest x-ray. Patient required 6 L of oxygen in the emergency room, he was admitted to [facility] and placed on IV dexamethasone and seen by pulmonary medicine and infectious diseases. Patient was placed on baricitinib, patient improved during his hospitalization. On 05/08/2021, patient was seen and examined: On examination he appeared in good health and spirits. Vital signs as documented. Skin warm and dry and without overt rashes. Neck without JVD, neck was supple, trachea midline, thyroid was normal. Lungs clear bilaterally, normal air movement was noted. Heart exam notable for regular rhythm, normal sounds and absence of murmurs, rubs or gallops. Abdomen unremarkable and without evidence of organomegaly, masses, or abdominal aortic enlargement. Bowel sounds are present, abdomen is not distended. Extremities nonedematous, no cyanosis was noted, no clubbing was noted. Neuro: Cranial nerves II through XII are grossly intact, no focal motor deficits were noted, sensation to light touch and pinprick intact, motor exam 5/5 throughout. Psych: Patient is alert and oriented x3, he does not appear anxious or depressed, he does not appear agitated. On 05/08/2021, patient was felt to be stable for discharge home, patient required 3 L of oxygen via nasal cannula on ambulation and at rest to maintain his pulse ox adequately. He was expected to wear oxygen inside the home and outside the home as directed. Patient was discharged home in stable condition on 05/08/2021 Weight / BMI Weight Weight: 111.8 kg Body Mass Index (BMI) 38.6 ABG / Lab / Microbiology Data Result Diagrams: 05/08/21 07:18 05/08/21 07:18 Laboratory: Laboratory Results - last 24 hr 05/08/21 07:18: WBC 12.8 H, RBC 5.00, Hgb 15.1, Hct 44.3, MCV 88.6, MCH 30.2, MCHC 34.1, RDW Std Deviation 40.1, RDW Coeff of [place] 12.4, Plt Count 292, MPV 10.6 05/08/21 07:18: Sodium 137, Potassium 4.3, Chloride 103, Carbon Dioxide 27.0, Anion Gap 7, BUN 41 H, Creatinine 1.22, Estim Creat Clear Calc 55.69, Est GFR (MDRD) Af Amer 76, Est GFR (MDRD) Non-Af 63, BUN/Creatinine Ratio 33.6 H, Glucose 154 H, Calcium 8.6, Total Bilirubin 0.50, AST 38 H, ALT 121 H, Alkaline Phosphatase 74, Total Protein 6.4, Albumin 2.6 L, Globulin 3.8, Albumin/Globulin Ratio 0.7 L Microbiology: Microbiology 05/02/21 12:34 Blood Culture (Wb) - Anticubital Left Bacteria Detection (PCR) - Final Staphylococcus epidermidis 05/02/21 12:34 Blood Culture (Wb) - Anticubital Left Blood Culture - Final Staphylococcus epidermidis 05/02/21 10:15 Blood Culture (Wb) - Anticubital Right Blood Culture - Final No growth in 5 days. 05/02/21 23:20 Sputum, Expectorated/Coughed Gram Stain - Final 05/02/21 23:20 Sputum, Expectorated/Coughed Respiratory Culture - Final Presumptive C albicans Mixed Melly 05/02/21 21:30 Urine, Clean Catch Legionella Antigen - Final 05/02/21 21:30 Urine, Clean Catch Streptococcus pneumoniae Antigen (M - Final D/C Instructions Discharge Diet: No restrictions Weight Bearing Status: Full weight bearing Meaningful Use Info Meaningful Use Diagnoses (Choose all that apply): None applicable Discharge Plan Admission Admit Date/Time: 05/02/21 12:05 Primary Reason for Your Visit: COVID-19 Attending Provider: Nobel Tobar Primary Care Provider: Liu Maciel Consulting Providers: Mustapha Patiño ; Nba Chavez ; Glen Walsh ; Tasneem Shahid CORPORATE QUALITY MANAGER Instructions Patient Instructions: Coronavirus Disease 2019 (COVID-19): Overview, Coronavirus Disease 2019 (COVID-19): Caring for Yourself or Others, COVID-19: Lying in a Prone Position (Proning), Preventing the Spread of Infection Understanding Isolation Procedures, Disinfecting Your Home of COVID-19 Additional Instructions / Restrictions: Quarantine until 05/15/21 Get the COVID vaccine in two months Use oxygen at 3 liters/min continuously Discharge Orders/Prescriptions Prescriptions: Continued lisinopril 20 mg tablet 20 mg PO DAILY RF: 0 omeprazole 40 mg capsule,delayed release(DR/EC) 40 mg PO BID RF: 0 glucosamine-chondroitin 900 mg tablet 900 mg PO DAILY RF: 0 hydrocodone-acetaminophen 1 TABLET tablet 1 tab PO Q6H PRN PRN (Reason: Pain) 3 Days Qty: 12 RF: 0 Discontinued dexamethasone 6 MG tablet 6 mg PO DAILY Qty: 5 RF: 0 Referrals / Follow Up: Liu Maciel MD [Primary Care Provider] - Within 2 Weeks (see after 05/15/21) Glen Walsh DO [STAFF PHYSICIAN] - Within 2 Weeks Disposition Disposition (needs filled in before D/C Order can be placed): Home, Self Care Charges/Coding Visit Charges Inpatient E&M: 99972 Disch Hosp
--- NOTE | 2021-05-10 15:53 | CASEMGMT ---
RN CM Discharge Follow Up Phone Call: KARLEE:Ricky Strata:2 Call Date: 05/10/21 Discharge Date: 05/08/21 Time of Call:1550 Duration: 3 min Admitting Dx: DARIAN 19 PNA RN CM completed follow up phone call after recent hospitalization. Pt states he is lying down and wishes this RN CM to speak to his . reports patient is doing pretty good. She states that he is weak but walking better. She asks what the normal values should be on their pulse ox. Made her aware and she states the O2 level is running in the 93-94% range. She states that the O2 is set up and today they received some mini tanks that she is thankful for. Pt is quarantining and she is aware he needs to continue until 05/15/21. They have not yet scheduled the follow up appts with Dr. Maciel or but will do so. She denies further questions or concerns at this time regarding dc instructions or medications.
== END 2021-05-08 16:45 | disposition home or self-care (01) | DRG 177 ==
LOC: ED 12:04 → MS3 12:28
PROVIDERS: Internal Medicine Critical Care Medicine; Internal Medicine Infectious Disease; Admitting Provider Internal Medicine; Emergency Provider Student in an Organized Health Care Education/Training Program; PCP Family Medicine; Visit Provider Internal Medicine
DX: U07.1 COVID-19 (principal); J12.82 Pneumonia due to coronavirus disease 2019; J96.01 Acute respiratory failure with hypoxia; B95.4 Other streptococcus as the cause of diseases classified elsewhere; I10 Essential (primary) hypertension; K21.9 Gastro-esophageal reflux disease without esophagitis; K29.70 Gastritis, unspecified, without bleeding; M17.0 Bilateral primary osteoarthritis of knee; E66.9 Obesity, unspecified; Z68.38 Body mass index [BMI] 38.0-38.9, adult; Z79.899 Other long term (current) drug therapy
CPT/HCPCS: 36415; 71045; 71275; 80048; 80053; 81001; 82550; 83605; 83615; 83690; 83735; 84100; 84145; 84484; 85025; 85027; 85379; 85384; 86140; 87040; 87070; 87149; 87205; 87449; 93005; 94660; 94667; 94668; 94762; 96365; 96366; 96375; 99251; 99285; J7050; J7120; Q9967; A4216; G0463; J0696; J1940; J2405; J3490

== ENCOUNTER → 2021-07-12 10:23 | Outpatient (CLI) | payer MEDICARE, OTHER, SELFPAY ==
--- NOTE | 2021-07-12 15:30 | PFTCOMP ---
COMPLETE PULMONARY FUNCTION TEST INTERPRETATION Brief HPI: Patient is a 66 year old male, currently under the care of Tasneem Shahid, who presents to [facility] for complete pulmonary function tests secondary to diagnosis of COVID-19. Respiratory therapist reports good effort and reproducible results. Interpretation: Forced expiration spirometry shows a mild large airways obstructive ventilatory defect with an FEV1 of 106% predicted. There is a significant bronchodilator response in FVC and FEV1 by strict ATS criteria. Spirograms are of good quality and plateau slowly, indicating slowly emptying areas of the lungs. The respiratory flow volume loop shows decreased expiratory flow rates at all lung volumes consistent with airway obstruction. Lung volumes by body plethysmography show a decreased total lung capacity at 4.86 L, 71% predicted. All other lung volumes are reduced symmetrically. Diffusion capacity by carbon monoxide is normal at 78% predicted. The airway resistance is elevated. No previous pulmonary function tests were available for review. Impression: Partially reversible mild mixed ventilatory defect with a symmetric reduction diffusion capacity
== END ==
PROVIDERS: PCP Family Medicine; Visit Provider Nurse Practitioner Acute Care
DX: U07.1 COVID-19 (principal)
CPT/HCPCS: 94060; 94726; 94729

== ENCOUNTER → 2021-07-13 10:43 | Outpatient (CLI) | payer MEDICARE, OTHER, SELFPAY ==
[2021-07-13 11:46] VITALS: PULSE 102; PULSE 108; PULSE 109; PULSE 110; PULSE 112; PULSE 84; PULSE 88; O2SAT 94; O2SAT 95
--- NOTE | 2021-07-13 13:48 | WT_ITS ---
PSN 6 Minute Walk Test 6 Minute Walk Test 6 Minute Walk Test: 6 Minute Walk Test PSN:6-Minute Walk Test Start: 07/13/21 11:46 Freq: Status: Active Protocol: [id number] Document 07/13/21 11:46 ABHILASH (Rec: 07/13/21 11:48 ABHILASH [id number]) 6 Minute Walk Test Date Performed 07/13/21 Time Performed 11:30 Height 5 ft 10 in Weight: 115.212 kg Weight in Pounds 254.[address]: Tasneem Shahid LEAD DATA ENTRY OPERATOR Assistive device used: None Pre-test Oxygen Delivery Method Room Air Pulse Ox (%) 95 Pulse Rate (60-100 beats/min) 84 Dyspnea Wendy Scale (0-10) 0 Exertion Wendy Scale (6-20) 6 1st minute Oxygen Delivery Method Room Air Pulse Ox (%) 94 Pulse Rate (60-100 beats/min) 102 H 2nd minute Oxygen Delivery Method Room Air Pulse Ox (%) 94 Pulse Rate (60-100 beats/min) 112 H 3rd minute Oxygen Delivery Method Room Air Pulse Ox (%) 95 Pulse Rate (60-100 beats/min) 110 H 4th minute Oxygen Delivery Method Room Air Pulse Ox (%) 94 Pulse Rate (60-100 beats/min) 108 H 5th minute Oxygen Delivery Method Room Air Pulse Ox (%) 95 Pulse Rate (60-100 beats/min) 108 H 6th minute Oxygen Delivery Method Room Air Pulse Ox (%) 94 Pulse Rate (60-100 beats/min) 109 H Dyspnea Wendy Scale (0-10) 2 Exertion Wendy Scale (6-20) 11 Post-test Oxygen Delivery Method Room Air Pulse Ox (%) 95 Pulse Rate (60-100 beats/min) 88 Full Laps Walked 18 Partial Lap, Number of Tiles Walked 46 Total Distance Walked (ft) 1108 Interpretation Interpretation: The patient was able to ambulate 1108 feet over the course of 6 minutes on room air with no assistive devices or breaks. The patient experienced no significant desaturation, but did have a peak heart rate of 112 bpm. These findings are consistent with a cardiovascular limitation exercise tolerance. Recommendations Recommendations: No supplemental oxygen is indicated at this time.
== END ==
PROVIDERS: PCP Family Medicine; Referring Provider Nurse Practitioner Acute Care; Visit Provider Nurse Practitioner Acute Care
DX: U07.1 COVID-19 (principal)
CPT/HCPCS: 94618

== ENCOUNTER → 2022-02-22 | Outpatient (CLI) | payer MEDICARE, OTHER, MEDICAID, SELFPAY ==
--- NOTE | 2022-02-22 10:26 | PFTCOMP_ITS ---
COMPLETE PULMONARY FUNCTION TEST INTERPRETATION Brief HPI: Patient is a 66-year-old male, currently under the care of myself, who presents to [facility] for complete pulmonary function tests secondary to diagnosis of status post COVID-19. Respiratory therapist reports good effort and reproducible results. Interpretation: Forced expiration spirometry shows no large airways obstructive ventilatory defect with an FEV1 of 86% predicted. There is no significant bronchodilator response by strict ATS criteria. Spirograms are of good quality and plateau normally. The respiratory flow volume loop shows a normal pattern. Lung volumes by body plethysmography show a normal total lung capacity at 6.37 L, 97% predicted. All other lung volumes are within normal limits. Diffusion capacity by carbon monoxide is normal at 89% predicted. The airway resistance is normal. Compared to previous pulmonary function tests from 07/12/2021, there is been a significant improvement in lung volumes and DLCO. Impression: Normalization of pulmonary function test as compared to June 2021
== END | disposition home or self-care (01) ==
PROVIDERS: PCP Family Medicine; Referring Provider Internal Medicine Critical Care Medicine; Visit Provider Internal Medicine Critical Care Medicine
DX: U07.1 COVID-19 (principal)
CPT/HCPCS: 94060; 94726; 94729

== ENCOUNTER → 2022-04-19 | Outpatient (CLI) | payer MEDICARE, OTHER, SELFPAY | END | disposition home or self-care (01) | LOC: SL 11:21 | PROVIDERS: PCP Family Medicine; Referring Provider Nurse Practitioner Acute Care; Visit Provider Nurse Practitioner Acute Care | DX: G47.10 Hypersomnia, unspecified (principal) | CPT/HCPCS: 95806 ==

== ENCOUNTER → 2022-08-04 | Outpatient (CLI) | payer MEDICARE, OTHER, SELFPAY | END | disposition home or self-care (01) | LOC: SL 10:32 | PROVIDERS: PCP Family Medicine; Visit Provider Internal Medicine Critical Care Medicine | DX: Z46.89 Encounter for fitting and adjustment of other specified devices (principal) ==